=== PATIENT | female | born 1990 | race Caucasian/White ===

== ENCOUNTER 2017-01-05 10:02 | Emergency (ER) | payer OTHER ==
[~2017-01-05 10:02] MED LIST: ACET50TA PO; ANUS2.5C2 EXT; DOCU10ELUD PO; IBUP80TA PO; MOM30SS PO
[2017-01-05] MEDS ORDERED: ONDANSETRON 4 MG ORAL DISINTEGRATING TAB (S0181) As Ordered ONE (10:28)
--- NOTE | 2017-01-05 10:39 | EDDOCDS ---
Nurse's Notes [facility] Name: Aylin Grimaldo Age: 26 yrs Sex: Female : 1990 Arrival Date: 01/05/2017 Time: 10:02 Bed TR8 Private MD: Diagnosis: Influenza due to unidentified influenza virus Presentation: 01/05 10:10 Presenting complaint: Patient states: "fevers on and off, ear hurts". x2-3 days. Cough, ttb nasal congestion. Adult Sepsis Screening: The patient does not have new or worsening altered mentation. Patient's respiratory rate is less than 22. Systolic blood pressure is greater than 100. Patient has a qSOFA score of 0- Negative Sepsis Screen. Suicide/Homicide risk assessment- the patient denies having any suicidal and/or homicidal ideations and does not present with any other emotional, behavioral or mental health complaints. 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 Transition of care: patient was not received from another setting of care. 10:10 Acuity: MIGUEL Level 4 ttb 10:10 Method Of Arrival: Walkin/Carried/Asstd ttb Triage Assessment: 10:12 General: Appears in no apparent distress, well nourished, well groomed, Behavior is ttb appropriate for age, cooperative, pleasant. Pain: Location: head, left ear 9/10. HIV screening NA for this visit Offered previously. Neurological: Level of Consciousness is awake, alert. EENT: Reports nasal congestion nasal discharge. Respiratory: Airway is patent Respiratory effort is even, unlabored, Respiratory pattern is regular, symmetrical, Reports cough that is non-productive. GI: Denies nausea, vomiting. Derm: Skin is normal. Musculoskeletal: body aches. 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 Oral 2 gummy once daily (Last dose: 01/05/2017 07:00) 2. tizanidine oral oral Unknown - PMHx: Anxiety; Bipolar disorder; Depression; - PSHx: none; - Social history: Smoking status: Patient uses tobacco products, current every day smoker. Patient/guardian denies using alcohol, street drugs, No barriers to communication noted, The patient speaks fluent Ethiopian, Speaks appropriately for age. - Family history: Pertinent for flu last week. - : The pt / caregiver states he / she is not on anticoagulants. Home medication list is obtained from the patient. - Exposure Risk Screening:: None identified. Screenin:30 Screening information is obtained from the patient. Fall risk: No risks identified. ttb Assistance ADL's: requires no assistance with activities of daily living. Abuse/DV Screen: The patient / caregiver reports he/she is: not in a situation that causes fear, pain or injury. Nutritional screening: No deficits noted. Advance Directives: Currently, there is no health care proxy. home support is adequate. Assessment: 10:30 General: see triage assessment. Meds given per orders. . ttb Vital Signs: 10:08 BP 133 / 77 RA Sitting (auto/reg); Pulse 100; Resp 18; Temp 99.0(O); Pulse Ox 98% on jrd R/A; Weight 63.05 kg (R); Height 5 ft. 4 in. (162.56 cm) (R); Pain 9/10; 10:08 Body Mass Index 23.86 (63.05 kg, 162.56 cm) [facility] Vitals: 10:08 Log In Time: January 05, 2017 at 10:03. [facility] ED Course: 10:04 Patient visited by Rodrick Garcia PCA. jrd 10:04 Patient moved to Waiting jrd 10:08 Patient moved to Pre RCE jrd 10:09 Patient visited by Rodrick Garcia PCA. jrd 10:11 Triage Initiated ttb 10:13 Jam Miles PA-C is PHCP. cc10 10:13 Vasu Abbott MD is Attending Physician. cc10 10:14 Patient visited by Kylee Anthony RN. ttb 10:14 Patient moved to Triage 2 ttb 10:15 Patient visited by Jam Miles PA-C. cc10 10:15 Patient visited by Jam Miles PA-C. cc10 10:30 The patient / caregiver is instructed regarding the plan of care and ED course. ttb Accompanied by Significant Other, Patient has correct armband on for positive identification. 10:30 No IV's were initiated during this patient's visit. No procedures done that require ttb assistance. 10:31 Patient moved to TR8 ttb Administered Medications: 10:30 Drug: Ondansetron ODT 4 mg [ondansetron 4 mg disintegrating tablet (1 tabs)] Route: PO; ttb Order Results: There are currently no results for this order. Outcome: 10:21 Discharge ordered by Provider. cc10 10:30 Discharge Assessment: Patient awake, alert and oriented x 3. No cognitive and/or ttb functional deficits noted. Patient verbalized understanding of disposition instructions. Patient awake and alert. patient administered narcotics - no. The following High Risk Discharge criteria are identified: None. Discharged to home ambulatory, with significant other. Condition: good Condition: stable Condition: improved. Discharge instructions given to patient, significant other, Instructed on discharge instructions, follow up and referral plans. medication usage, diet, Demonstrated understanding of instructions, medications, Pt was receptive of discharge instructions/ teaching. Prescriptions given X 1. No special radiology studies were completed. Property :Personal belongings accompany Pt. 10:38 Patient left the ED. ttb Signatures: Kylee Anthony, RN RN ttb Jam Miles, PA-C PA-C cc10 Rodrick Garcia, [employer] OFFICER jrd MTDD
--- NOTE | 2017-01-05 10:39 | EDDOCDS ---
Physician Documentation [facility] Name: Aylin Grimaldo Age: 26 yrs Sex: Female : 1990 Arrival Date: 01/05/2017 Time: 10:02 Bed TR8 Private MD: Disposition: 01/05/17 10:21 Discharged to Home/Self Care. Impression: Influenza due to unidentified influenza virus. - Condition is Stable. - Discharge Instructions: Influenza Adult. - Prescriptions for ZOFRAN ODT 4 mg - dissolve 1 tablet by ORAL route 4 times per day As needed do not chew, do not swallow whole; 10 tablet. - Medication Reconciliation form. - Follow up: Private Physician; When: Call to arrange an appointment; Reason: Recheck today's complaints, Continuance of care. - Problem is an ongoing problem. - Symptoms are unchanged. Historical: - Allergies: Macrobid (Hives); PENICILLINS (Rash); Toradol (Rash); SULFA (SULFONAMIDES) (Hives); Tramadol HCl (Rash); - Home Meds: 1. Oral 2 gummy once daily (Last dose: 01/05/2017 07:00) 2. tizanidine oral oral Unknown - PMHx: Anxiety; Bipolar disorder; Depression; - PSHx: none; - Social history: Smoking status: Patient uses tobacco products, current every day smoker. Patient/guardian denies using alcohol, street drugs, No barriers to communication noted, The patient speaks fluent Iraqi, Speaks appropriately for age. - Family history: Pertinent for flu last week. - : The pt / caregiver states he / she is not on anticoagulants. Home medication list is obtained from the patient. - Exposure Risk Screening:: None identified. 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 4 in. (162.56 cm) (R); Pain 9/10; 10:08 Body Mass Index 23.86 (63.05 kg, 162.56 cm) jrd MDM: 10:20 Ondansetron ODT Oral Disintegrating Tablet 4 mg PO once ordered. cc10 10:34 Financial registration complete. lg Administered Medications: 10:30 Drug: Ondansetron ODT 4 mg [ondansetron 4 mg disintegrating tablet (1 tabs)] Route: PO; ttb Signatures: Kenya Bucio, Reg Reg lg Kylee Anthony, KOBE RN ttb Jam Miles PA-C PAGina cc10 MTDD
--- NOTE | 2017-01-07 11:39 | EDDOCDS ---
Physician Documentation [facility] Name: Aylin Grimaldo Age: 26 yrs Sex: Female : 1990 Arrival Date: 01/05/2017 Time: 10:02 Bed TR8 Private MD: Disposition: 01/05/17 10:21 Discharged to Home/Self Care. Impression: Influenza due to unidentified influenza virus. - Condition is Stable. - Discharge Instructions: Influenza Adult. - Prescriptions for ZOFRAN ODT 4 mg - dissolve 1 tablet by ORAL route 4 times per day As needed do not chew, do not swallow whole; 10 tablet. - Medication Reconciliation form. - Follow up: Private Physician; When: Call to arrange an appointment; Reason: Recheck today's complaints, Continuance of care. - Problem is an ongoing problem. - Symptoms are unchanged. Historical: - Allergies: Macrobid (Hives); PENICILLINS (Rash); Toradol (Rash); SULFA (SULFONAMIDES) (Hives); Tramadol HCl (Rash); - Home Meds: 1. Oral 2 gummy once daily (Last dose: 01/05/2017 07:00) 2. tizanidine oral oral Unknown - PMHx: Anxiety; Bipolar disorder; Depression; - PSHx: none; - Social history: Smoking status: Patient uses tobacco products, current every day smoker. Patient/guardian denies using alcohol, street drugs, No barriers to communication noted, The patient speaks fluent Kyrgyz, Speaks appropriately for age. - Family history: Pertinent for flu last week. - : The pt / caregiver states he / she is not on anticoagulants. Home medication list is obtained from the patient. - Exposure Risk Screening:: None identified. 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 4 in. (162.56 cm) (R); Pain 9/10; 10:08 Body Mass Index 23.86 (63.05 kg, 162.56 cm) jrd MDM: 10:20 Ondansetron ODT Oral Disintegrating Tablet 4 mg PO once ordered. cc10 10:34 Financial registration complete. lg 10:52 [facility] Payment Agreement was scanned into [employer] and attached to record. lg 13:00 T-Sheet-- Draft Copy was scanned into [employer] and attached to record. klr Administered Medications: 10:30 Drug: Ondansetron ODT 4 mg [ondansetron 4 mg disintegrating tablet (1 tabs)] Route: PO; ttb Signatures: Kenya Bucio, Jerry Reg lg Kylee Anthony, RN RN ttb Jam Miles PA-C PATraciC cc10 Angelica Ellis klr The chart was reviewed and I authenticate all verbal orders and agree with the evaluation and treatment provided.Attachments: 10:52 [facility] Payment Agreement lg 13:00 T-Sheet-- Draft Copy klr Chart Complete MTDD
--- NOTE | 2017-01-07 11:39 | EDDOCDS ---
Physician Documentation [facility] Name: Aylin Grimaldo Age: 26 yrs Sex: Female : 1990 Arrival Date: 01/05/2017 Time: 10:02 Bed TR8 Private MD: Disposition: 01/05/17 10:21 Discharged to Home/Self Care. Impression: Influenza due to unidentified influenza virus. - Condition is Stable. - Discharge Instructions: Influenza Adult. - Prescriptions for ZOFRAN ODT 4 mg - dissolve 1 tablet by ORAL route 4 times per day As needed do not chew, do not swallow whole; 10 tablet. - Medication Reconciliation form. - Follow up: Private Physician; When: Call to arrange an appointment; Reason: Recheck today's complaints, Continuance of care. - Problem is an ongoing problem. - Symptoms are unchanged. Historical: - Allergies: Macrobid (Hives); PENICILLINS (Rash); Toradol (Rash); SULFA (SULFONAMIDES) (Hives); Tramadol HCl (Rash); - Home Meds: 1. Oral 2 gummy once daily (Last dose: 01/05/2017 07:00) 2. tizanidine oral oral Unknown - PMHx: Anxiety; Bipolar disorder; Depression; - PSHx: none; - Social history: Smoking status: Patient uses tobacco products, current every day smoker. Patient/guardian denies using alcohol, street drugs, No barriers to communication noted, The patient speaks fluent Maltese, Speaks appropriately for age. - Family history: Pertinent for flu last week. - : The pt / caregiver states he / she is not on anticoagulants. Home medication list is obtained from the patient. - Exposure Risk Screening:: None identified. 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 4 in. (162.56 cm) (R); Pain 9/10; 10:08 Body Mass Index 23.86 (63.05 kg, 162.56 cm) jrd MDM: 10:20 Ondansetron ODT Oral Disintegrating Tablet 4 mg PO once ordered. cc10 10:34 Financial registration complete. lg 10:52 ON LICENSE OF [facility] Payment Agreement was scanned into [employer] and attached to record. lg 13:00 T-Sheet-- Draft Copy was scanned into [employer] and attached to record. klr Administered Medications: 10:30 Drug: Ondansetron ODT 4 mg [ondansetron 4 mg disintegrating tablet (1 tabs)] Route: PO; ttb Signatures: Kenya Bucio, Jerry Reg lg Kylee Anthony, RN RN ttb Jam Miles PA-C PATraciC cc10 Angelica Ellis klr The chart was reviewed and I authenticate all verbal orders and agree with the evaluation and treatment provided.Attachments: 10:52 ON LICENSE OF [facility] Payment Agreement lg 13:00 T-Sheet-- Draft Copy klr Chart Complete MTDD
--- NOTE | 2017-01-07 11:39 | EDDOCDS ---
Nurse's Notes [facility] Name: Aylin Grimaldo Age: 26 yrs Sex: Female : 1990 Arrival Date: 01/05/2017 Time: 10:02 Bed TR8 Private MD: Diagnosis: Influenza due to unidentified influenza virus Presentation: 01/05 10:10 Presenting complaint: Patient states: "fevers on and off, ear hurts". x2-3 days. Cough, ttb nasal congestion. Adult Sepsis Screening: The patient does not have new or worsening altered mentation. Patient's respiratory rate is less than 22. Systolic blood pressure is greater than 100. Patient has a qSOFA score of 0- Negative Sepsis Screen. Suicide/Homicide risk assessment- the patient denies having any suicidal and/or homicidal ideations and does not present with any other emotional, behavioral or mental health complaints. Status: Patient is not a intermodal customer service or dependent. Transition of care: patient was not received from another setting of care. 10:10 Acuity: MIGUEL Level 4 ttb 10:10 Method Of Arrival: Walkin/Carried/Asstd ttb Triage Assessment: 10:12 General: Appears in no apparent distress, well nourished, well groomed, Behavior is ttb appropriate for age, cooperative, pleasant. Pain: Location: head, left ear 9/10. HIV screening NA for this visit Offered previously. Neurological: Level of Consciousness is awake, alert. EENT: Reports nasal congestion nasal discharge. Respiratory: Airway is patent Respiratory effort is even, unlabored, Respiratory pattern is regular, symmetrical, Reports cough that is non-productive. GI: Denies nausea, vomiting. Derm: Skin is normal. Musculoskeletal: body aches. 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 Oral 2 gummy once daily (Last dose: 01/05/2017 07:00) 2. tizanidine oral oral Unknown - PMHx: Anxiety; Bipolar disorder; Depression; - PSHx: none; - Social history: Smoking status: Patient uses tobacco products, current every day smoker. Patient/guardian denies using alcohol, street drugs, No barriers to communication noted, The patient speaks fluent [place], Speaks appropriately for age. - Family history: Pertinent for flu last week. - : The pt / caregiver states he / she is not on anticoagulants. Home medication list is obtained from the patient. - Exposure Risk Screening:: None identified. Screenin:30 Screening information is obtained from the patient. Fall risk: No risks identified. ttb Assistance ADL's: requires no assistance with activities of daily living. Abuse/DV Screen: The patient / caregiver reports he/she is: not in a situation that causes fear, pain or injury. Nutritional screening: No deficits noted. Advance Directives: Currently, there is no health care proxy. home support is adequate. Assessment: 10:30 General: see triage assessment. Meds given per orders. . ttb Vital Signs: 10:08 BP 133 / 77 RA Sitting (auto/reg); Pulse 100; Resp 18; Temp 99.0(O); Pulse Ox 98% on jrd R/A; Weight 63.05 kg (R); Height 5 ft. 4 in. (162.56 cm) (R); Pain 9/10; 10:08 Body Mass Index 23.86 (63.05 kg, 162.56 cm) [facility] Vitals: 10:08 Log In Time: January 05, 2017 at 10:03. [facility] ED Course: 10:04 Patient visited by Rodrick Garcia PCA. jrd 10:04 Patient moved to Waiting jrd 10:08 Patient moved to Pre RCE jrd 10:09 Patient visited by Rodrick Garcia PCA. jrd 10:11 Triage Initiated ttb 10:13 Jam Miles PA-C is PHCP. cc10 10:13 Vasu Abbott MD is Attending Physician. cc10 10:14 Patient visited by Kylee Anthony RN. ttb 10:14 Patient moved to Triage 2 ttb 10:15 Patient visited by Jam Miles PA-C. cc10 10:15 Patient visited by Jam Miles PA-C. cc10 10:30 The patient / caregiver is instructed regarding the plan of care and ED course. ttb Accompanied by Significant Other, Patient has correct armband on for positive identification. 10:30 No IV's were initiated during this patient's visit. No procedures done that require ttb assistance. 10:31 Patient moved to TR8 ttb 10:52 [facility] Payment Agreement was scanned into [employer] and attached to record. 13:00 T-Sheet-- Draft Copy was scanned into [employer] and attached to record. klr Administered Medications: 10:30 Drug: Ondansetron ODT 4 mg [ondansetron 4 mg disintegrating tablet (1 tabs)] Route: PO; ttb Order Results: There are currently no results for this order. Outcome: 10:21 Discharge ordered by Provider. cc10 10:30 Discharge Assessment: Patient awake, alert and oriented x 3. No cognitive and/or ttb functional deficits noted. Patient verbalized understanding of disposition instructions. Patient awake and alert. patient administered narcotics - no. The following High Risk Discharge criteria are identified: None. Discharged to home ambulatory, with significant other. Condition: good Condition: stable Condition: improved. Discharge instructions given to patient, significant other, Instructed on discharge instructions, follow up and referral plans. medication usage, diet, Demonstrated understanding of instructions, medications, Pt was receptive of discharge instructions/ teaching. Prescriptions given X 1. No special radiology studies were completed. Property :Personal belongings accompany Pt. 10:38 Patient left the ED. ttb Signatures: Kenya Bucio, Kylee Christensen lg, RN RN ttb Jam Miles, PEDRO PAGina cc10 Rodrick Garcia PCA PCA jrd Redder, Kathie klr Chart Complete MTDD
== END 2017-01-05 10:38 | disposition home or self-care (01) ==
LOC: M ED 10:02
DX: J10.1 Influenza due to other identified influenza virus with other respiratory manifestations (principal); F41.9 Anxiety disorder, unspecified; F31.9 Bipolar disorder, unspecified; F32.9 Major depressive disorder, single episode, unspecified; Z72.0 Tobacco use; Z79.899 Other long term (current) drug therapy; Z88.1 Allergy status to other antibiotic agents; Z88.2 Allergy status to sulfonamides; Z88.5 Allergy status to narcotic agent; Z88.6 Allergy status to analgesic agent; Z88.0 Allergy status to penicillin

== ENCOUNTER 2017-02-10 04:05 | Emergency (ER) | payer OTHER ==
[~2017-02-10] VITALS: Ht 162.6 cm; Wt 61.2 kg
[2017-02-10 04:09] VITALS: BP 120/63
[2017-02-10] MEDS ORDERED: TOBRADEX OPHTH SUSP 2.5 ML OD ONE (04:30)
[2017-02-10] MEDS ORDERED: TOBRSUS39 OD (04:37)
== END 2017-02-10 05:05 | disposition home or self-care (01) ==
LOC: M ED 04:44
DX: H10.31 Unspecified acute conjunctivitis, right eye (principal); F31.9 Bipolar disorder, unspecified; F17.210 Nicotine dependence, cigarettes, uncomplicated; Z88.0 Allergy status to penicillin; Z88.2 Allergy status to sulfonamides; Z79.899 Other long term (current) drug therapy

== ENCOUNTER 2017-04-12 13:57 | Emergency (ER) | payer OTHER ==
[~2017-04-12] VITALS: Ht 162.6 cm; Wt 59.0 kg
[~2017-04-12 13:57] MED LIST changes: +TOBRSUS39 OD
[2017-04-12] MEDS ORDERED: TIZA4CAP3 PO (14:12)
[2017-04-12] MEDS ORDERED: ZYRT10TA2 PO (14:12)
[2017-04-12] MEDS ORDERED: ALBU17IN INH (14:12)
[2017-04-12] MEDS ORDERED: ALBUTEROL 90 MCG/ACT 8GM HFA INHALER INH ONE (15:30)
[2017-04-12] MEDS ORDERED: methylPREDNISolone INJ 125 MG/2 ML VIAL (J2930) IV ONE (15:45)
--- NOTE | 2017-04-12 16:27 | REP ---
clinical: Acute cough . Comparison: 10/25/2012 . Technique: PA and lateral. Findings: The mediastinum and cardiac silhouette are normal. The lung hay are clear and without acute consolidation, effusion, or pneumothorax. The skeletal structures are intact and normal. Impression: 1. No acute cardiopulmonary process. Signed by Norm Bowser MD 04/12/2017 04:19 P
[2017-04-12 16:35] LABS: BASO % 0.3 % (0.0-1.0); EOS # 0.3 K/mm3 (0.0-0.50); EOS % 2.3 % (0.0-3.0); LARGE UNSTAINED CELL # 0.1 K/mm3 (0.0-0.4); LARGE UNSTAINED CELL % 0.9 % (0.0-4.0); LYMPH # 2.3 K/mm3 (1.5-6.5); LYMPH % 17.2 % (24.0-44.0); MEAN CORPUSCULAR HEMOGLOBIN 30.4 pg (27.0-33.0); MEAN CORPUSCULAR HGB CONC 33.9 g/dl (32.0-36.5); MEAN CORPUSCULAR VOLUME 89.6 fl (80.0-96.0); MONO # 0.6 K/mm3 (0.0-0.8); MONO % 4.5 % (0.0-5.0); NEUTROPHILS # 9.3 K/mm3 (1.8-7.7); NEUTROPHILS % 74.9 % (36.0-66.0); PLATELET COUNT, AUTOMATED 260 k/mm3 (150-450); RED CELL DISTRIBUTION WIDTH 12.5 % (11.5-14.5); WHITE BLOOD COUNT 12.5 K/mm3 (4.0-10.0)
[2017-04-12 16:53] LABS: ANION GAP 8 MEQ/L (8-16); BLOOD UREA NITROGEN 12 MG/DL (7-18); CALCIUM LEVEL 9.2 MG/DL (8.5-10.1); CARBON DIOXIDE LEVEL 27 MEQ/L (21-32); CHLORIDE LEVEL 104 MEQ/L (98-107); CREATININE FOR GFR 0.65 MG/DL (0.55-1.02); GLOMERULAR FILTRATION RATE > 60.0 (>60); GLUCOSE, FASTING 80 MG/DL (70-105); POTASSIUM SERUM 3.9 MEQ/L (3.5-5.1); SODIUM LEVEL 139 MEQ/L (136-145)
[2017-04-12] MEDS ORDERED: PRED20TA PO (17:14)
[2017-04-12] MEDS ORDERED: DEXT30LI PO (17:20)
[2017-04-12 17:37] VITALS: BP 115/70
--- NOTE | 2017-04-13 14:23 | ECGEPIP ---
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
== END 2017-04-12 17:50 | disposition home or self-care (01) ==
LOC: M ED 15:01
DX: J45.901 Unspecified asthma with (acute) exacerbation (principal); R05 Cough; F17.200 Nicotine dependence, unspecified, uncomplicated; Z79.899 Other long term (current) drug therapy; Z88.0 Allergy status to penicillin; Z88.1 Allergy status to other antibiotic agents; Z88.2 Allergy status to sulfonamides; Z88.5 Allergy status to narcotic agent; Z88.8 Allergy status to other drugs, medicaments and biological substances; Z91.02 Food additives allergy status

== ENCOUNTER 2017-05-17 01:57 | Emergency (ER) | payer OTHER ==
[~2017-05-17] VITALS: Ht 162.6 cm; Wt 61.4 kg
[~2017-05-17 01:57] MED LIST changes: +ALBU17IN INH; +DEXT30LI PO; +PRED20TA PO; +TIZA4CAP3 PO; +ZYRT10TA2 PO
[2017-05-17] MEDS ORDERED: MORPHINE 10 MG/ML 1ML VIAL IM ONE (04:15)
[2017-05-17] MEDS ORDERED: PERC5TAB12 PO (05:29)
[2017-05-17] MEDS ORDERED: OXYCODONE/APAP 5MG/325MG(BULK FOR ED) 1 TABLET PO ONE (05:30)
[2017-05-17 05:49] VITALS: BP 126/71
--- NOTE | 2017-05-17 06:13 | REP ---
Clinical: Trauma. Technique: AP angled and lateral views of the sacrum and coccyx. Findings: Bilateral sacroiliac joints are intact, symmetric and normal for age. The sacrum is intact. Lateral view demonstrates fracture / dislocation of the distal coccygeal segment with overlying soft tissue swelling. Impression: Acute versus chronic distal coccyx fracture / dislocation with overlying soft tissue swelling. Signed by Norm Bowser MD 05/17/2017 06:05 A
== END 2017-05-17 05:51 | disposition home or self-care (01) ==
LOC: M ED 03:02
DX: S30.0XXA Contusion of lower back and pelvis, initial encounter (principal); F17.210 Nicotine dependence, cigarettes, uncomplicated; X58.XXXA Exposure to other specified factors, initial encounter; Z79.899 Other long term (current) drug therapy; Z88.0 Allergy status to penicillin; Z88.2 Allergy status to sulfonamides; Z88.8 Allergy status to other drugs, medicaments and biological substances; Y92.9 Unspecified place or not applicable; Y93.9 Activity, unspecified; Y99.9 Unspecified external cause status

== ENCOUNTER 2017-06-20 22:54 | Emergency (ER) | payer OTHER ==
[~2017-06-20] VITALS: Ht 162.6 cm; Wt 67.8 kg
[~2017-06-20 22:54] MED LIST changes: +PERC5TAB12 PO
[2017-06-21] MEDS ORDERED: CLEO300C2 PO (00:28)
[2017-06-21] MEDS ORDERED: TYLE500T78 PO (00:28)
[2017-06-21] MEDS ORDERED: NORCO 5/325MG TABLET (BULK FOR ED) PO ONE (00:30)
[2017-06-21] MEDS ORDERED: CLINDAMYCIN 150 MG CAP PO ONE (00:30)
[2017-06-21 00:40] VITALS: BP 112/77
== END 2017-06-21 00:56 | disposition home or self-care (01) ==
LOC: M ED 22:54
DX: K02.9 Dental caries, unspecified (principal); J45.909 Unspecified asthma, uncomplicated; F41.9 Anxiety disorder, unspecified; F31.9 Bipolar disorder, unspecified; Z86.14 Personal history of Methicillin resistant Staphylococcus aureus infection; Z79.899 Other long term (current) drug therapy; Z99.0 Dependence on aspirator; Z88.2 Allergy status to sulfonamides; Z88.5 Allergy status to narcotic agent; Z88.8 Allergy status to other drugs, medicaments and biological substances

== ENCOUNTER 2017-07-17 13:39 | Emergency (ER) | payer OTHER ==
[~2017-07-17] VITALS: Ht 162.6 cm; Wt 65.9 kg
[~2017-07-17 13:39] MED LIST changes: +CLEO300C2 PO; +TYLE500T78 PO
[2017-07-17] MEDS ORDERED: ADVI200T PO (13:58)
[2017-07-17] MEDS ORDERED: NS 1,000 ML IV ONE (15:45)
[2017-07-17] MEDS ORDERED: ACETAMINOPHEN 325 MG TAB PO ONE (15:45)
[2017-07-17] MEDS ORDERED: CLINDAMYCIN 900 MG in APPROPRIATE DILUENT 1 EA IV ONE (15:45)
[2017-07-17 16:12] LABS: BASO % 0.3 % (0.0-1.0); EOS # 0.2 K/mm3 (0.0-0.50); EOS % 1.2 % (0.0-3.0); LARGE UNSTAINED CELL # 0.1 K/mm3 (0.0-0.4); LYMPH % 6.8 % (24.0-44.0); MEAN CORPUSCULAR HEMOGLOBIN 30.9 pg (27.0-33.0); MEAN CORPUSCULAR HGB CONC 34.4 g/dl (32.0-36.5); MEAN CORPUSCULAR VOLUME 89.8 fl (80.0-96.0); MONO # 0.9 K/mm3 (0.0-0.8); MONO % 7.4 % (0.0-5.0); NEUTROPHILS # 10.5 K/mm3 (1.8-7.7); NEUTROPHILS % 83.3 % (36.0-66.0); PLATELET COUNT, AUTOMATED 227 k/mm3 (150-450); RED CELL DISTRIBUTION WIDTH 12.6 % (11.5-14.5); WHITE BLOOD COUNT 12.6 K/mm3 (4.0-10.0)
[2017-07-17 16:26] LABS: CONTROL LINE HCG INT CTR LINE PRESENT
[2017-07-17 16:34] LABS: ALBUMIN 3.5 GM/DL (3.2-5.2); ALKALINE PHOSPHATASE 76 U/L (45-117); ALT/SGPT 14 U/L (12-78); ANION GAP 7 MEQ/L (8-16); AST/SGOT 12 U/L (15-37); BILIRUBIN,DIRECT < 0.1 MG/DL (0.0-0.2); BILIRUBIN,TOTAL 0.4 MG/DL (0.2-1.0); BLOOD UREA NITROGEN 10 MG/DL (7-18); CALCIUM LEVEL 8.7 MG/DL (8.5-10.1); CARBON DIOXIDE LEVEL 24 MEQ/L (21-32); CHLORIDE LEVEL 108 MEQ/L (98-107); CREATININE FOR GFR 0.55 MG/DL (0.55-1.02); GLOMERULAR FILTRATION RATE > 60.0 (>60); GLUCOSE, FASTING 87 MG/DL (70-105); POTASSIUM SERUM 3.5 MEQ/L (3.5-5.1); SODIUM LEVEL 139 MEQ/L (136-145)
[2017-07-17] MEDS ORDERED: CLEO300C2 PO (18:01)
[2017-07-17 18:11] VITALS: BP 89/53
== END 2017-07-17 18:12 | disposition home or self-care (01) ==
LOC: M ED 13:39
DX: R50.9 Fever, unspecified (principal); L73.9 Follicular disorder, unspecified; J02.9 Acute pharyngitis, unspecified; D32.9 Benign neoplasm of meninges, unspecified; F17.200 Nicotine dependence, unspecified, uncomplicated; Z79.899 Other long term (current) drug therapy; Z88.8 Allergy status to other drugs, medicaments and biological substances; Z88.0 Allergy status to penicillin; Z88.2 Allergy status to sulfonamides; Z88.5 Allergy status to narcotic agent

== ENCOUNTER 2017-07-20 22:09 | Emergency (ER) | payer OTHER ==
[~2017-07-20] VITALS: Ht 162.6 cm; Wt 64.7 kg
[~2017-07-20 22:09] MED LIST changes: +ADVI200T PO
[2017-07-20 22:10] VITALS: BP 107/65
[2017-07-20] MEDS ORDERED: LIDOCAINE 2% MDV 20 ML VIAL SC ONE (23:00)
[2017-07-20] MEDS ORDERED: NORCO 5/325MG TABLET (BULK FOR ED) PO ONE (23:30)
== END 2017-07-20 23:44 | disposition home or self-care (01) ==
LOC: M ED 22:09
DX: L02.214 Cutaneous abscess of groin (principal); Z86.14 Personal history of Methicillin resistant Staphylococcus aureus infection; F17.200 Nicotine dependence, unspecified, uncomplicated; J45.909 Unspecified asthma, uncomplicated; M54.9 Dorsalgia, unspecified; F41.9 Anxiety disorder, unspecified; F32.9 Major depressive disorder, single episode, unspecified; Z79.899 Other long term (current) drug therapy; Z88.8 Allergy status to other drugs, medicaments and biological substances; Z88.0 Allergy status to penicillin; Z88.2 Allergy status to sulfonamides; Z88.5 Allergy status to narcotic agent; Z88.6 Allergy status to analgesic agent

== ENCOUNTER 2018-04-08 17:45 | Emergency (ER) | payer OTHER ==
[2018-04-08] MEDS: CETACAINE SPRAY 5GM TOP (18:30)
[2018-04-08] MEDS: LIDOCAINE 2% W/EPIN INJ 20ML **PRES FREE INJ (18:30)
[2018-04-08] MEDS: BUPIVACAINE HCL 0.5% 10 ML VIAL SC (18:30)
== END 2018-04-08 19:28 | disposition home or self-care (01) ==
LOC: M ED 17:45
DX: S02.5XXA Fracture of tooth (traumatic), initial encounter for closed fracture (principal); K04.7 Periapical abscess without sinus; K08.89 Other specified disorders of teeth and supporting structures; X58.XXXA Exposure to other specified factors, initial encounter; Y92.9 Unspecified place or not applicable; Y93.9 Activity, unspecified; Y99.9 Unspecified external cause status; Z79.899 Other long term (current) drug therapy; Z88.8 Allergy status to other drugs, medicaments and biological substances; Z88.0 Allergy status to penicillin; Z88.2 Allergy status to sulfonamides; Z88.5 Allergy status to narcotic agent
CPT/HCPCS: 64400

== ENCOUNTER 2018-10-16 10:33 | Day surgery (SDC) | payer OTHER ==
[2018-10-16 11:22] LABS: CONTROL LINE UCG INT CTR LINE PRESENT; URINE PREG TEST NEGATIVE (NEGATIVE)
[2018-10-16] MEDS: LR 1,000 ML IV ×2 (11:30→15:28)
[2018-10-16] MEDS ORDERED: LIDOCAINE 2% W/ EPINEPHRINE 1.7 ML DENTAL INJ As Ordered (13:29)
[2018-10-16] MEDS: dexameTHASONE 4 MG/ML 1ML VIAL (J1100) IV (13:58)
[2018-10-16] MEDS: CLINDAMYCIN 900 MG in APPROPRIATE DILUENT 1 EA IV (14:00)
[2018-10-16] MEDS ORDERED: PROPOFOL 200 MG/20 ML VIAL As Ordered (14:15)
[2018-10-16] MEDS ORDERED: ROCURONIUM BROMIDE 50 MG/5 ML VIAL As Ordered (14:15)
[2018-10-16] MEDS ORDERED: ePHEDrine SULFATE 25 MG/5 ML(5MG/ML) SYRINGE As Ordered (14:15)
[2018-10-16] MEDS ORDERED: fentaNYL 250 MCG/5 ML INJECTION (J3010) As Ordered (14:15)
[2018-10-16] MEDS ORDERED: MIDAZOLAM INJ 2 MG/2 ML VIAL (J2250) As Ordered (14:15)
[2018-10-16] MEDS ORDERED: LIDOCAINE 2% INJ 100 MG/5 ML SDV (FOR ANES.) As Ordered (14:15)
[2018-10-16] MEDS ORDERED: ONDANSETRON 4MG/2ML VIAL (J2405) As Ordered (14:15)
[2018-10-16] MEDS ORDERED: GLYCOPYRROLATE INJ 0.2 MG/ML 2 ML VIAL As Ordered ×2 (14:27)
[2018-10-16] MEDS ORDERED: NEOSTIGMINE 10 MG/10 ML VIAL (J2710) As Ordered (14:27)
[2018-10-16] MEDS: CHLORHEXIDINE ORAL RINSE 0.12%/15ML 120ML BOTTLE As Ordered (14:30)
[2018-10-16] MEDS ORDERED: MORPHINE 10 MG/ML 1ML VIAL (J2270) IV (15:45)
[2018-10-16] MEDS: PERCOCET 5MG/325MG TAB PO ×2 (16:20→16:50)
[2018-10-16] MEDS: ONDANSETRON 4MG/2ML VIAL (J2405) IV (16:20)
[2018-10-16] MEDS: fentaNYL 100 MCG/2 ML INJECTION (J3010) IV ×4 (16:20→16:35)
[2018-10-16] MEDS ORDERED: PERCOCET 5MG/325MG TAB As Ordered (16:50)
== END 2018-10-16 19:05 | disposition home or self-care (01) ==
LOC: M SDC 10:33
DX: K02.9 Dental caries, unspecified (principal); R01.1 Cardiac murmur, unspecified; R29.898 Other symptoms and signs involving the musculoskeletal system; F41.0 Panic disorder [episodic paroxysmal anxiety]; F31.9 Bipolar disorder, unspecified; J45.909 Unspecified asthma, uncomplicated; Z88.0 Allergy status to penicillin; Z88.2 Allergy status to sulfonamides; Z88.5 Allergy status to narcotic agent; Z88.8 Allergy status to other drugs, medicaments and biological substances; Z79.899 Other long term (current) drug therapy; Z72.0 Tobacco use
CPT/HCPCS: D9223

== ENCOUNTER → 2019-06-27 | Outpatient (CLI) | payer OTHER ==
[~2019-06-27] MED LIST changes: -ACET50TA PO; +ADDE20CA3 PO; -DOCU10ELUD PO; +DOCU5LIQ PO; +FLUO40CA PO; +GABA-845 PO; +MAPA500T17 PO; +NEUR100C PO; +TIZA4CAP PO; -TIZA4CAP3 PO; +TOPI50TA9 PO; +ZOFR4TAB16 PO; +ZYRT10CA5 PO; -ZYRT10TA2 PO
[2019-06-27 12:17] LABS: BASO % 0.4 % (0.0-1.0); EOS # 0.1 10^3/uL (0.0-0.50); EOS % 1.6 % (0.0-3.0); HEMATOCRIT 41.1 % (36.0-47.0); HEMOGLOBIN 13.9 g/dl (12.0-15.5); LYMPH # 2.4 10^3/uL (1.5-6.5); LYMPH % 29.2 % (24.0-44.0); MEAN CORPUSCULAR HEMOGLOBIN 29.9 pg (27.0-33.0); MEAN CORPUSCULAR HGB CONC 33.8 g/dl (32.0-36.5); MEAN CORPUSCULAR VOLUME 88.4 fl (80.0-96.0); MONO # 0.7 10^3/uL (0.0-0.8); MONO % 8.6 % (0.0-5.0); PLATELET COUNT, AUTOMATED 292 10^3/uL (150-450); RED BLOOD COUNT 4.65 10^6/uL (4.00-5.40); WHITE BLOOD COUNT 8.3 10^3/uL (4.0-10.0)
[2019-06-27 13:10] LABS: HEPATITIS C VIRUS ABY INDEX 0.1 INDEX (<0.8); RUBELLA IgG QUALITATIVE IMMUNE (IMMUNE)
[2019-06-27 16:39] LABS: CHLAMYDIA DNA AMPLIFICATION NEGATIVE (NEGATIVE)
[2019-06-28 06:32] LABS: GC DNA AMPLIFICATION NEGATIVE (NEGATIVE)
[2019-06-28 06:33] LABS: HIV 1&2 SCREEN CENTAUR NEGATIVE (NEGATIVE)
== END ==
LOC: M LAB 10:55
PROVIDERS: ATTEND Advanced Practice Midwife
DX: Z34.80 Encounter for supervision of other normal pregnancy, unspecified trimester (principal); Z3A.09 9 weeks gestation of pregnancy

== ENCOUNTER 2019-07-03 19:23 | Emergency (ER) | payer OTHER ==
[~2019-07-03] VITALS: Ht 162.6 cm; Wt 70.1 kg
[~2019-07-03 19:23] MED LIST changes: -ZOFR4TAB16 PO
[2019-07-03 20:53] LABS: BASO % 0.4 % (0.0-1.0); EOS # 0.2 10^3/uL (0.0-0.50); EOS % 1.4 % (0.0-3.0); HEMOGLOBIN 13.7 g/dl (12.0-15.5); LYMPH # 3.4 10^3/uL (1.5-6.5); LYMPH % 30.6 % (24.0-44.0); MEAN CORPUSCULAR HEMOGLOBIN 30.5 pg (27.0-33.0); MEAN CORPUSCULAR HGB CONC 34.3 g/dl (32.0-36.5); MEAN CORPUSCULAR VOLUME 89.1 fl (80.0-96.0); MONO # 0.8 10^3/uL (0.0-0.8); NEUTROPHILS # 6.7 10^3/uL (1.8-7.7); NEUTROPHILS % 60.3 % (36.0-66.0); PLATELET COUNT, AUTOMATED 265 10^3/uL (150-450); RED BLOOD COUNT 4.49 10^6/uL (4.00-5.40); WHITE BLOOD COUNT 11.1 10^3/uL (4.0-10.0)
[2019-07-03] MEDS ORDERED: NS 1,000 ML IV ONE ×2 (21:30→22:45)
[2019-07-03] MEDS ORDERED: ONDANSETRON 4MG/2ML VIAL (J2405) IV ONE (21:30)
[2019-07-03 21:39] LABS: BLOOD UREA NITROGEN 7 MG/DL (7-18); CALCIUM LEVEL 9.4 MG/DL (8.5-10.1); CARBON DIOXIDE LEVEL 26 MEQ/L (21-32); CHLORIDE LEVEL 104 MEQ/L (98-107); CREATININE FOR GFR 0.48 MG/DL (0.55-1.30); GLOMERULAR FILTRATION RATE > 60.0 (>60); GLUCOSE, FASTING 75 MG/DL (70-100); HCG, SERUM QUANTITATIVE 28760 MIU/ML; POTASSIUM SERUM 3.6 MEQ/L (3.5-5.1); SODIUM LEVEL 137 MEQ/L (136-145)
[2019-07-03] MEDS ORDERED: ZOFR4TAB16 PO (23:07)
[2019-07-03 23:15] VITALS: BP 104/70
== END 2019-07-04 00:19 | disposition home or self-care (01) ==
LOC: M ED 19:23
DX: E86.0 Dehydration (principal); Z3A.11 11 weeks gestation of pregnancy; Z88.0 Allergy status to penicillin; Z88.1 Allergy status to other antibiotic agents; Z88.2 Allergy status to sulfonamides; Z88.5 Allergy status to narcotic agent; Z88.8 Allergy status to other drugs, medicaments and biological substances
CPT/HCPCS: 80048; 81001; 84702; 85025; 87086; 96361; 96374; 99284; J2405

== ENCOUNTER → 2019-07-03 | Outpatient (CLI) | payer OTHER ==
[2019-07-03 13:46] LABS: FREE T4 1.04 NG/DL (0.76-1.46); THYROID STIMULATING HORMONE 0.351 uIU/ML (0.358-3.740)
== END ==
LOC: M SMT 09:37
PROVIDERS: ATTEND Advanced Practice Midwife
DX: R11.2 Nausea with vomiting, unspecified (principal)

== ENCOUNTER 2019-07-30 17:32 | Emergency (ER) | payer OTHER ==
[~2019-07-30] VITALS: Ht 162.6 cm; Wt 73.5 kg
[~2019-07-30 17:32] MED LIST changes: +ZOFR4TAB16 PO
[2019-07-30] MEDS ORDERED: RISP1TAB3 (18:51)
[2019-07-30] MEDS ORDERED: GABA-845 (18:51)
[2019-07-30] MEDS ORDERED: TOPI50TA9 (18:51)
[2019-07-30] MEDS ORDERED: GABA-1171 (18:51)
[2019-07-30] MEDS ORDERED: NS 1,000 ML IV ONE (20:00)
[2019-07-30] MEDS ORDERED: FIORICET TAB PO ONE (20:00)
[2019-07-30 20:43] LABS: HEMATOCRIT 35.6 % (36.0-47.0); HEMOGLOBIN 12.1 g/dl (12.0-15.5); MEAN CORPUSCULAR HEMOGLOBIN 30.3 pg (27.0-33.0); MEAN CORPUSCULAR VOLUME 89.2 fl (80.0-96.0); PLATELET COUNT, AUTOMATED 315 10^3/uL (150-450); RED BLOOD COUNT 3.99 10^6/uL (4.00-5.40); WHITE BLOOD COUNT 12.7 10^3/uL (4.0-10.0)
[2019-07-30 21:04] LABS: BLOOD UREA NITROGEN 8 MG/DL (7-18); CALCIUM LEVEL 9.6 MG/DL (8.5-10.1); CARBON DIOXIDE LEVEL 24 MEQ/L (21-32); CHLORIDE LEVEL 106 MEQ/L (98-107); CREATININE FOR GFR 0.38 MG/DL (0.55-1.30); GLOMERULAR FILTRATION RATE > 60.0 (>60); GLUCOSE, FASTING 75 MG/DL (70-100); POTASSIUM SERUM 3.7 MEQ/L (3.5-5.1); SODIUM LEVEL 137 MEQ/L (136-145)
[2019-07-30 21:41] VITALS: BP 100/57
--- NOTE | 2019-07-30 22:39 | REPVR ---
EXAM: US Abdomen Complete EXAM DATE/TIME: 07/30/2019 9:26 PM CLINICAL HISTORY: 29 years old, female; Injury or trauma; Fall; Initial encounter; Blunt; Luq; Injury date: 07/30/19; ; Additional info: Pain over spleen fell TECHNIQUE: Imaging protocol: Real-time ultrasound of the abdomen with image documentation. COMPARISON: US OBS DELON GEST 07/30/2019 8:51 PM FINDINGS: Liver: Unremarkable. Gallbladder: No gallstones. No gallbladder wall thickening or pericholecystic fluid. 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 Common bile duct: No stones. No ductal dilatation. Pancreas: Unremarkable as visualized. Right kidney: No mass. No definite stones. Mild prominence of the right renal collecting system, likely physiologic. Left kidney: No mass. No definite stones. No hydronephrosis. Spleen: Unremarkable. Aorta: Unremarkable as visualized. No aneurysm. Inferior vena cava: Unremarkable as visualized. IMPRESSION: Mild prominence of the right renal collecting system, likely physiologic. Electronically signed by: Rocco Campos On 07/30/2019 22:38:58 PM
--- NOTE | 2019-07-30 23:01 | REPVR ---
EXAM: US After First Trimester, Transabdominal EXAM DATE/TIME: 07/30/2019 9:26 PM CLINICAL HISTORY: 29 years old, female; Injury or trauma; Fall; Initial encounter; Blunt trauma; Left upper quadrant; Injury date: 07/30/19; ; Additional info: Fell on stomach, TECHNIQUE: Imaging protocol: Real-time transabdominal obstetrical ultrasound of the maternal pelvis and a second or third trimester with image documentation. COMPARISON: OBS COMPLETE US 03/26/2013 11:12 AM FINDINGS: There is a vincent fetus in transverse presentation. The heart rate was measured at 149 beats per minute. The biparietal diameter is 3.2 cm, corresponding to an estimated gestational age of 16 weeks, 1 day. The head circumference is 11.2 cm, corresponding to an estimated gestational age of 15 weeks, 3 days. The abdominal circumference is 9.2 cm, corresponding to an estimated gestational age of 15 weeks, 2 days. The femur length is 1.9 cm, corresponding to an estimated gestational age of 15 weeks, 5 days. The average ultrasound age was measured at 15 weeks, 4 days. The estimated gestational age based on the last menstrual period (04/14/2019) is 15 weeks, 2 days. The estimated weight is 127 g, corresponding to the 52nd percentile. The sonographic estimated date of delivery is 01/17/2020. A detailed anatomic survey was not performed at this time. No abnormality is identified on this limited examination. The placenta is anterior in location. There is an adequate amount of amniotic fluid. The cervix is closed and measures approximately 4.2 cm in length. IMPRESSION: Single viable intrauterine gestation in transverse presentation with an average ultrasound age of 15 weeks, 4 days. No abnormality identified on this limited examination. Recommend continued clinical and ultrasound surveillance, as clinically indicated. Electronically signed by: Rocco Campos On 07/30/2019 23:01:09 PM
[2019-10-19] MEDS ORDERED: PRENTAB9 PO (11:45)
[2019-10-19] MEDS ORDERED: CLEO300C2 PO (13:41)
== END 2019-07-30 23:57 | disposition home or self-care (01) ==
LOC: M ED 17:32
DX: O99.352 Diseases of the nervous system complicating pregnancy, second trimester (principal); G43.909 Migraine, unspecified, not intractable, without status migrainosus; Z3A.15 15 weeks gestation of pregnancy; O99.342 Other mental disorders complicating pregnancy, second trimester; O99.512 Diseases of the respiratory system complicating pregnancy, second trimester; J45.909 Unspecified asthma, uncomplicated; F33.9 Major depressive disorder, recurrent, unspecified; F41.9 Anxiety disorder, unspecified; Z88.0 Allergy status to penicillin; Z88.1 Allergy status to other antibiotic agents; Z88.2 Allergy status to sulfonamides; Z88.5 Allergy status to narcotic agent; Z88.8 Allergy status to other drugs, medicaments and biological substances; Z79.899 Other long term (current) drug therapy; O99.332 Smoking (tobacco) complicating pregnancy, second trimester; F17.210 Nicotine dependence, cigarettes, uncomplicated

== ENCOUNTER → 2019-08-15 | Outpatient (CLI) | payer OTHER ==
[~2019-08-15] MED LIST changes: +GABA-1171; +GABA-845; +PRENTAB9 PO; +RISP1TAB3; +TOPI50TA9; +VENTAER INH
== END ==
LOC: M SMT 10:40
PROVIDERS: ATTEND Advanced Practice Midwife
DX: Z36.89 Encounter for other specified antenatal screening (principal)

== ENCOUNTER 2019-08-21 19:16 | Emergency (ER) | payer OTHER ==
[~2019-08-21] VITALS: Ht 162.6 cm; Wt 75.9 kg
[~2019-08-21 19:16] MED LIST changes: -PRENTAB9 PO; -VENTAER INH
[2019-08-21] MEDS ORDERED: IPRATROPIUM 0.5MG/ALBUTEROL 2.5MG INH SOL UD 3ML (DUONEB)(J7620) NEB ONE ×2 (20:15→22:30)
[2019-08-21 20:23] LABS: BASO % 0.2 % (0.0-1.0); EOS # 0.2 10^3/uL (0.0-0.5); EOS % 1.4 % (0.0-3.0); HEMOGLOBIN 11.4 g/dl (12.0-15.5); LYMPH # 2.9 10^3/uL (1.5-5.0); LYMPH % 22.1 % (24.0-44.0); MEAN CORPUSCULAR HEMOGLOBIN 30.6 pg (27.0-33.0); MEAN CORPUSCULAR HGB CONC 33.5 g/dl (32.0-36.5); MEAN CORPUSCULAR VOLUME 91.2 fl (80.0-96.0); MONO # 0.9 10^3/uL (0.0-0.8); MONO % 7.2 % (0.0-5.0); NEUTROPHILS % 68.7 % (36.0-66.0); PLATELET COUNT, AUTOMATED 288 10^3/uL (150-450); RED BLOOD COUNT 3.73 10^6/uL (4.00-5.40); WHITE BLOOD COUNT 13.1 10^3/uL (4.0-10.0)
[2019-08-21 20:55] LABS: BLOOD UREA NITROGEN 8 MG/DL (7-18); CALCIUM LEVEL 8.7 MG/DL (8.5-10.1); CARBON DIOXIDE LEVEL 25 MEQ/L (21-32); CHLORIDE LEVEL 108 MEQ/L (98-107); CK-MB VALUE MASS < 1.0 NG/ML (<3.6); CPK CREATINE PHOSPHOKINASE 37 U/L (26-192); CREATININE FOR GFR 0.52 MG/DL (0.55-1.30); GLOMERULAR FILTRATION RATE > 60.0 (>60); GLUCOSE, FASTING 83 MG/DL (70-100); POTASSIUM SERUM 3.5 MEQ/L (3.5-5.1); SODIUM LEVEL 141 MEQ/L (136-145); TROPONIN I < 0.02 NG/ML (< 0.10)
--- NOTE | 2019-08-21 21:54 | REPVR ---
PROCEDURE INFORMATION: Exam: US Duplex Lower Extremity Veins Exam date and time: 08/21/2019 9:05 PM Clinical history: 29 years old, female; Pain; Other: Chest; Additional info: Preg chest pain eval for dvt TECHNIQUE: Imaging protocol: Real-time duplex ultrasound of the Lower Extremities with 2-D woodson scale, color Doppler flow and spectral waveform analysis with image documentation. Complete exam focused on the bilateral lower extremity veins. COMPARISON: No relevant prior studies available. FINDINGS: Right deep veins: Unremarkable. The common femoral, femoral, proximal profunda femoral and popliteal veins are patent without thrombus. Normal Doppler waveforms. Normal compressibility and/or augmentation response. Right superficial veins: Saphenofemoral junction is patent without thrombus. Left deep veins: Unremarkable. The common femoral, femoral, proximal profunda femoral and popliteal veins are patent without thrombus. Normal Doppler waveforms. Normal compressibility and/or augmentation response. Left superficial veins: Saphenofemoral junction is patent without thrombus. Soft tissues: Unremarkable. IMPRESSION: No sonographic evidence of deep vein thrombosis. Electronically signed by: Rocco Campos On 08/21/2019 21:54:18 PM
[2019-08-21] MEDS ORDERED: predniSONE 20 MG TAB PO ONE (22:45)
[2019-08-21 23:52] VITALS: O2SAT 100
[2019-08-22] MEDS ORDERED: ALBUTEROL 90 MCG/ACT 8GM HFA INHALER INH ONE
[2019-08-22] MEDS ORDERED: VENTAER INH (00:32)
[2019-08-22] MEDS ORDERED: PRED20TA PO (00:32)
[2019-08-22 00:34] VITALS: BP 118/59
--- NOTE | 2019-08-22 07:38 | ECGEPIP ---
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
== END 2019-08-22 00:40 | disposition home or self-care (01) ==
LOC: M ED 19:16
DX: J45.901 Unspecified asthma with (acute) exacerbation (principal); J06.9 Acute upper respiratory infection, unspecified; F41.9 Anxiety disorder, unspecified; F31.9 Bipolar disorder, unspecified; K21.9 Gastro-esophageal reflux disease without esophagitis; M54.9 Dorsalgia, unspecified; F17.200 Nicotine dependence, unspecified, uncomplicated; Z79.899 Other long term (current) drug therapy; Z88.0 Allergy status to penicillin; Z88.2 Allergy status to sulfonamides; Z88.5 Allergy status to narcotic agent; Z88.8 Allergy status to other drugs, medicaments and biological substances

== ENCOUNTER → 2019-08-22 | Outpatient (CLI) | payer OTHER ==
[~2019-08-22] MED LIST changes: +VENTAER INH
--- NOTE | 2019-08-22 15:25 | REP ---
Obstetric sonography: History: Supervision of for anatomy. Findings: Scanning through the gravid uterus demonstrates a viable single intrauterine gestation in a cephalic lie. motion is observed and heart rate is recorded at 140 beats per minute. An anterior grade 0 placenta is seen without evidence of previa or abruption. Amniotic fluid is subjectively normal. Closed cervical length is 3.9 cm. No extrauterine abnormalities observed. No anomaly is seen. nose and lips are seen but facial profile is less than optimally visualized due to position. Similarly, four-chamber heart and right ventricular outflow tract views are less than optimally achieved. The following additional anatomic structures are identified and felt to be unremarkable: cranium, choroid plexus, cavum, cerebellum and posterior fossa, left ventricular outflow tract view, diaphragm, left-sided stomach, abdominal wall cord insertion, three-vessel cord, kidneys and bladder, spine, upper and lower extremities. Biometry chart: BPD 4.5 cm = 19 weeks 4 days HC 15.9 cm = 18 weeks 5 days AC 12.4 cm = 18 weeks 0 days FL 2.5 cm = 17 weeks 3 days HL 2.5 cm = 18 weeks 0 days HC/AC ratio 1.28 (1.07-1.26. Cephalic index normal 0.82. Estimated weight 214 grams, 0 pounds 7 ounces, 21st percentile for 18 weeks 4 days. Impression: Viable single intrauterine gestation at 18 weeks 2 days by today's composite sonographic criteria. Expected gestational age estimate based on prior sonography is 18 weeks 6 days. MAE by prior sonography January 17, 2020. anatomic survey is less than complete regarding facial profile, four-chamber heart, and right ventricular cardiac outflow tract views. Electronically Signed by Colin Miller MD 08/22/2019 04:05 P
== END ==
LOC: M RAD 09:57
PROVIDERS: ATTEND Advanced Practice Midwife
DX: Z34.82 Encounter for supervision of other normal pregnancy, second trimester (principal); Z36.89 Encounter for other specified antenatal screening

== ENCOUNTER → 2019-09-19 | Outpatient (CLI) | payer OTHER ==
--- NOTE | 2019-09-19 12:22 | REP ---
OB ULTRASOUND: Real-time sonographic evaluation of the gravid uterus is performed. There is a single living intrauterine gestation. Estimated gestational age 22 weeks 4 days, EDC 01/19/2020. Today's measurements indicate appropriate growth. BPD 56 mm = 23 weeks 1 days, 64th percentile HC 200 mm = 22 weeks 1 day, 36th percentile AC 171 mm = 22 weeks 0 days, 38th percentile Femur length 39 mm = 22 weeks 5 days, 52nd percentile HC/AC ratio 1.17 within normal range. Estimated weight 496 grams, 37th percentile. Cervix is closed and measures 4.9 cm in length. heart rate 147 beats per minute. SEEN/GROSSLY UNREMARKABLE Lateral ventricles Yes Posterior fossa Yes Upper lip Yes Four-chamber heart Yes LVOT Yes RVOT Yes Stomach Yes Cord insertion Yes Three vessel cord Yes Kidneys Yes Bladder Yes Spine Yes position: Variable. Placenta: Fundal and to the right, grade 0 with no previa or abruption. Amniotic fluid: Within normal limits. Electronically Signed by Joon Thibodeaux MD 09/19/2019 01:09 P
== END ==
LOC: M RAD 10:00
PROVIDERS: ATTEND Advanced Practice Midwife
DX: Z34.82 Encounter for supervision of other normal pregnancy, second trimester (principal)

== ENCOUNTER → 2019-10-19 | Outpatient (CLI) | payer OTHER ==
[~2019-10-19] VITALS: Ht 162.6 cm; Wt 75.5 kg
[~2019-10-19] MED LIST changes: +CLINDAMYCIN 150 MG CAP PO SCH; +PRENTAB9 PO
[2019-10-19 11:57] VITALS: BP 110/57
[2019-10-19 12:46] LABS: APPEARANCE, URINE MANUAL HAZY (CLEAR)
[2019-10-19 12:47] LABS: COLOR, URINE MANUAL DK YELLOW (YELLOW)
[2019-10-19 12:48] LABS: GLUCOSE, URINE (UA) MANUAL NEGATIVE (NEGATIVE); PROTEIN, URINE MANUAL 2+ mg/dL (NEGATIVE); SPECIFIC GRAVITY,URINE MANUAL 1.005 (1.002-1.035)
[2019-10-19 12:49] LABS: BILIRUBIN, URINE MANUAL NEGATIVE (NEGATIVE); BLOOD URINE MANUAL TRACE (NEGATIVE); KETONE, URINE MANUAL 3+ mg/dL (NEGATIVE); LEUKOCYTE ESTERASE, URINE MAN TRACE (NEGATIVE); NITRITE, URINE MANUAL NEGATIVE (NEGATIVE); UROBILINOGEN, URINE MANUAL NORMAL (NORMAL)
[2019-10-19 12:54] LABS: WBC, URINE 40-50 /hpf (0-3)
[2019-10-19 12:55] LABS: SQUAMOUS EPITHELIAL CELL URINE LARGE AMOUNT /hpf (SMALL AMT)
[2019-10-19 12:56] LABS: BACTERIA, URINE LARGE AMOUNT; HYALINE CAST, URINE 0-1 /lpf (0-1)
[2019-10-19 12:57] LABS: MUCUS, URINE LARGE AMOUNT (NEGATIVE)
[2019-10-19 13:15] VITALS: BP 103/52
--- NOTE | 2019-10-19 13:26 | REP ---
Clinical: Pain cramping Comparison: 09/19/2019 . Findings: Examination demonstrates a single live intrauterine in cephalic presentation. motion is identified by technologist. Placenta is noted fundal and grade I without evidence for placenta previa or abruption. Amniotic fluid volume is normal. Cervix measures 4.3 cm in length and appears closed. No evidence for nuchal cord. Gestational age by LMP 26 weeks 6 days with MAE 01/19/2020 . Gestational age by current measurements 27 weeks 3 days with MAE 01/15/2020 . FHR equals 150 beats per minute. Estimated weight 1016 grams ( 46th percentile). Anatomical assessment is unremarkable and without obvious abnormality. Impression: Single live intrauterine in cephalic presentation. No gross abnormalities are identified. Electronically Signed by Norm Bowser MD 10/19/2019 01:18 P
--- NOTE | 2019-10-19 13:48 | IPNPDOC ---
Text Note Date of Service The patient was seen on 10/19/19. NOTE Outpatient 29yo MAE 01/19/2020. Presents @ 26+6wks with complaints of bleeding this am and lower right quadrant discomfort. Pt has recently been tx with azithromycin for pneumonia. Harsh cough persists. Denies lOF or regular UC. Fetus is active. NST reassuring for gestation UA shows trace blood, trace leuk esterase, 2+ protein and 3+ ketones Sono shows cephalic SIUP, 46% growth. Placenta is fundal without evidence previa or abruption normal fluid Spec exam, cervix LTC, no evidence of vaginal bleeding. GC/CT obtained Discharged home with clindamycin PO TID x 10 days for UTI. Enc increased fluids and food. Keep next appt NV VS,Fishbone, I+O VS, Fishbone, I+O Vital Signs Date Time Temp Pulse Resp B/P (MAP) Pulse Ox O2 Delivery O2 Flow Rate FiO2 10/19/19 13:15 98.2 86 18 103/52 (69) Elisa Coffman CNM Oct 19, 2019 13:48
[2019-10-19 14:28] LABS: CHLAMYDIA DNA AMPLIFICATION NEGATIVE (NEGATIVE); GC DNA AMPLIFICATION NEGATIVE (NEGATIVE)
== END ==
LOC: M LDO 11:30
PROVIDERS: ATTEND Advanced Practice Midwife
DX: O26.852 Spotting complicating pregnancy, second trimester (principal); R10.31 Right lower quadrant pain; O23.40 Unspecified infection of urinary tract in pregnancy, unspecified trimester; Z3A.26 26 weeks gestation of pregnancy

== ENCOUNTER → 2019-12-19 | Outpatient (CLI) | payer OTHER ==
[~2019-12-19] MED LIST changes: -CLINDAMYCIN 150 MG CAP PO SCH
[2019-12-19 09:31] LABS: HEMATOCRIT 34.7 % (36.0-47.0); HEMOGLOBIN 10.9 g/dl (12.0-15.5); MEAN CORPUSCULAR HGB CONC 31.4 g/dl (32.0-36.5); MEAN CORPUSCULAR VOLUME 89.2 fl (80.0-96.0); PLATELET COUNT, AUTOMATED 416 10^3/uL (150-450); RED BLOOD COUNT 3.89 10^6/uL (4.00-5.40)
== END ==
LOC: M LAB 07:49
PROVIDERS: ATTEND Advanced Practice Midwife
DX: Z34.83 Encounter for supervision of other normal pregnancy, third trimester (principal); Z3A.00 Weeks of gestation of pregnancy not specified

== ENCOUNTER → 2019-12-20 | Outpatient (REF) | payer OTHER | LOC: M SFHCWAGY 16:54 | PROVIDERS: ATTEND Advanced Practice Midwife | DX: Z36.85 Encounter for antenatal screening for Streptococcus B (principal) ==

== ENCOUNTER → 2019-12-20 | Outpatient (CLI) | payer OTHER | LOC: M PLALAB 13:01 | PROVIDERS: ATTEND Advanced Practice Midwife | DX: Z34.93 Encounter for supervision of normal pregnancy, unspecified, third trimester (principal); Z3A.00 Weeks of gestation of pregnancy not specified ==

== ENCOUNTER 2020-01-19 00:01 | Outpatient (CLI) | payer OTHER ==
[~2020-01-19] VITALS: Ht 162.6 cm; Wt 77.6 kg
[2020-01-19 00:22] VITALS: BP 116/68
[2020-01-19] MEDS ORDERED: IRON27TA2 PO (00:31)
[2020-01-19] MEDS ORDERED: TUMS500C PO (00:31)
--- NOTE | 2020-01-19 00:53 | IPNPDOC ---
Text Note Date of Service The patient was seen on 01/19/20. NOTE Triage Subjective: Patient is a at 39.6wk gestation based on LMP and consistent with first trimester ultrasound. MAE of 01/19/2020. Patient presents to L&D c/o painful uterine contractions since 2099 with hip pain. Denies leakage of fluid or vaginal bleeding. Reports positive movement. Objective: Alert and oriented x3, no apparent distress. SVE 60/-2. No change from patient's stated exam in the office yesterday. No leakage of fluid noted or vaginal bleeding. FHR 125 with minimal to moderate variability. Mild contractions every 2-3 minutes. Assessment: Latent labor, FHR category 1 predominately. Plan: Urinalysis showed trace ketones, specific gravity 1.023. Increase oral fluid intake. Given water and juice to drink. Encouraged Tylenol PO and rest at home. Reviewed plan for IOL on 01/20/2020. Reviewed access to care and danger signs. VS,Fishbone, I+O VS, Fishbone, I+O Vital Signs Date Time Temp Pulse Resp B/P (MAP) Pulse Ox O2 Delivery O2 Flow Rate FiO2 01/19/20 00:22 98.2 108 16 116/68 (84) Elisa Coffman CNM Jan 19, 2020 00:53
[2020-01-19 01:07] LABS: APPEARANCE, URINE HAZY (CLEAR); BACTERIA, URINE AUTO 1+ (NEGATIVE); BILIRUBIN, URINE AUTO NEGATIVE (NEGATIVE); BLOOD, URINE BLOOD NEGATIVE (NEGATIVE); COLOR, URINE YELLOW (YELLOW); GLUCOSE, URINE (UA) AUTO NEGATIVE (NEGATIVE); KETONE, URINE AUTO TRACE mg/dL (NEGATIVE); LEUKOCYTE ESTERASE, URINE AUTO TRACE (NEGATIVE); MUCUS, URINE SMALL (NEGATIVE); NITRITE, URINE AUTO NEGATIVE (NEGATIVE); PROTEIN, URINE AUTO NEGATIVE (NEGATIVE); RBC, URINE AUTO 3 /HPF (0-3); SPECIFIC GRAVITY URINE AUTO 1.023 (1.002-1.035); SQUAMOUS EPITHELIAL CELL UR AU 1 /HPF (0-6); UROBILINOGEN, URINE AUTO 0.2 mg/dL (0.0-2.0); WBC, URINE AUTO 9 /HPF (0-3)
[2020-01-20] MEDS ORDERED: MAPA500T2 PO (08:00)
== END 2020-01-19 01:21 | disposition home or self-care (01) ==
LOC: M LDO 00:01
PROVIDERS: ATTEND Advanced Practice Midwife
DX: O47.1 False labor at or after 37 completed weeks of gestation (principal); Z3A.39 39 weeks gestation of pregnancy; Z88.0 Allergy status to penicillin; Z88.2 Allergy status to sulfonamides; Z88.8 Allergy status to other drugs, medicaments and biological substances; Z79.899 Other long term (current) drug therapy

== ENCOUNTER 2020-01-20 07:29 | Inpatient (IN) | payer OTHER ==
[2020-01-20] VITALS (21 sets, daily range): BP systolic 101–127; BP diastolic 56–79
[~2020-01-20] VITALS: Ht 162.6 cm; Wt 79.6 kg
[~2020-01-20 07:29] MED LIST changes: +IRON27TA2 PO; +TUMS500C PO
[2020-01-20] MEDS ORDERED: MAPA500T2 PO (08:00)
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
[2020-01-20] MEDS: miSOPROStol 50 MCG 1/2 TAB (S0191) SL SCH ×5 (09:01→22:55)
[2020-01-20 09:16] LABS: HEMATOCRIT 33.2 % (36.0-47.0); HEMOGLOBIN 10.9 g/dl (12.0-15.5); MEAN CORPUSCULAR HEMOGLOBIN 28.8 pg (27.0-33.0); MEAN CORPUSCULAR HGB CONC 32.8 g/dl (32.0-36.5); MEAN CORPUSCULAR VOLUME 87.6 fl (80.0-96.0); PLATELET COUNT, AUTOMATED 342 10^3/uL (150-450); RED BLOOD COUNT 3.79 10^6/uL (4.00-5.40)
[2020-01-20] MEDS ORDERED: OXYTOCIN 30 UNITS IN 0.9% NaCl 500ML IV BAG (J2590) As Ordered ONE (21:18)
[2020-01-20] MEDS ORDERED: FENTANYL 2MCG/ML ROPIVACAINE 0.2% IN 0.9% NACL 100ML IVBAG As Ordered ONE (21:30)
[2020-01-20] MEDS: FENTANYL/ROPIVACAINE/NACL BAG 100 ML EPIDURAL SCH (22:24)
[2020-01-20] MEDS ORDERED: EPIDURAL/PCA KEYS XX PRN (22:45)
[2020-01-20] MEDS ORDERED: ONDANSETRON 4MG/2ML VIAL (J2405) IV PRN (22:45)
[2020-01-20] MEDS ORDERED: LACTATED RINGER'S 1000 ML IV PRN (22:45)
[2020-01-20] MEDS ORDERED: ePHEDrine SULFATE 25 MG/5 ML(5MG/ML) SYRINGE IV PRN (22:45)
[2020-01-20] MEDS ORDERED: EPIDURAL COMMENT XX SCH (22:45)
[2020-01-20] MEDS ORDERED: NALOXONE INJ 0.4 MG/1 ML VIAL (J2310) IV PRN (22:45)
[2020-01-20] MEDS ORDERED: REFRIGERATOR IV KEYS XX PRN (22:45)
[2020-01-20] MEDS ORDERED: diphenhydrAMINE INJ 50MG/ML VIAL (J1200) IV PRN (22:45)
[2020-01-20] MEDS ORDERED: LR 1,000 ML IV ONE (23:00)
[2020-01-20] MEDS: LR 1,000 ML IV SCH (23:10)
[2020-01-20] MEDS ORDERED: CALCIUM CARBONATE 500 MG CHEW U/D PO PRN (23:15)
[2020-01-21] VITALS (36 sets, daily range): BP systolic 91–133; BP diastolic 53–79
[2020-01-21] MEDS ORDERED: OXYTOCIN DRIP 30 UNITS in IV 1 EA IV SCH ×2 (03:45→10:47)
[2020-01-21] MEDS ORDERED: FENTANYL 2MCG/ML ROPIVACAINE 0.2% IN 0.9% NACL 100ML IVBAG As Ordered ONE (04:23)
[2020-01-21] MEDS: FENTANYL/ROPIVACAINE/NACL BAG 100 ML EPIDURAL SCH (04:33)
--- NOTE | 2020-01-21 08:12 | IPNPDOC ---
Obstetrical Progress Note Date of Service Jan 21, 2020 Subjective Patient reports she is comfortable with her epidural. She reports intermittent pelvic pressure. Denies complaints. Objective Vital Signs Date Time Temp Pulse Resp B/P (MAP) Pulse Ox O2 Delivery O2 Flow Rate FiO2 01/21/20 06:58 78 01/21/20 06:55 98.9 01/21/20 06:42 91/54 (66) 01/21/20 05:03 16 97 Room Air Assessment Heart Rate (FHR): 130 Variability: Moderate Accelerations: Positive Decelerations: None Heart Rate Tracing: Category I Tocometer Contractions: Yes Frequency: regular, every 1-3 min. (2-3 minutes) Duration: greater than 90 seconds Strength: palpated as moderate Sterile Vaginal Examination Dilation: 6 cm (normal bloody show) Effacement (%): 80% Station: -1 Cervical Consistency: Soft Cervical Position: Anterior Postion/Presentation: Cephalic presentation Assessment and Plan Age: 29 : 11 Term: 2 Pre-term: 0 Abortions: 8 Livin Weeks & Days 40.2wk Status: Reassuring Group B Streptococcus: Negative Anticipate: Vaginal Delivery Additional Comments IV Pitocin is at 4 mu/min CORDELIA NOVAK CNM Jan 21, 2020 08:12
[2020-01-21] MEDS: LR 1,000 ML IV SCH (08:28)
[2020-01-21] MEDS: PRENATAL VITAMINS CHEWABLE TABLET PO SCH (09:00)
--- NOTE | 2020-01-21 10:47 | DNPDOC ---
[facility] Delivery Note Delivery Note DATE OF DELIVERY: 01/21/2020 at 1005 PREDELIVERY DIAGNOSIS: 40-2/7 weeks' gestation and labor. POST DELIVERY DIAGNOSIS: Delivered. PROCEDURE: Spontaneous vaginal delivery. PROVIDER: Valorie Tian, Student Nurse-Process Developer assisted by Cordelia Edward CNM, TALHA ANESTHESIA: Epidural. ESTIMATED BLOOD LOSS: 250 mL. FINDINGS: 6 pound 12 ounce (3050g) viable male , Score 9/9. DELIVERY SUMMARY: Patient is a 29-year-old 11 now para 3-0-8-3 who was admitted to labor and delivery for elective induction of labor. She received an epidural for pain management. Patient was induced using misoprostol, cook's catheter and IV Pitocin. She progressed to full dilation at 0955 and pushed to a living male in the OA position with restitution to LOT at 1005. The anterior shoulder was delivered with ease and the corpus immediately followed. The infant was placed on the maternal abdomen, [id number], active and crying. The cord was clamped times 2 and cut by the FOB after pulsation ceased. A 3- vessel cord was noted. The placenta delivered spontaneously and intact at 1009. Uterine hemostasis was achieved via rapid infusion of IV Pitocin at 999 ml/hr for 30 units in 500ml NS and fundal massage. The vagina, cervix and perineum were inspected and found to have a small left labial and left vaginal abrasion that were not repaired due to good hemostasis. Mom plans to breast and bottle feed and attempted in the room. Both mom and baby are in stable condition. They plan to name the baby "Radha." All counts of instruments and sponges are correct. CORDELIA EDWARD CNM Jan 21, 2020 10:47
[2020-01-21] MEDS ORDERED: DIBUCAINE 1% OINTMENT 30GM TOP PRN (11:00)
[2020-01-21] MEDS ORDERED: METHYLERGONOVINE MALEATE 0.2 MG TAB PO PRN (11:00)
[2020-01-21] MEDS ORDERED: ANUSOL HC CREAM 30GM TOP PRN (11:00)
[2020-01-21] MEDS ORDERED: RHOGAM 300 MCG (1500 IU) INJ (J2790) IM SCH (11:00)
[2020-01-21] MEDS ORDERED: IBUPROFEN 600 MG TAB PO PRN (11:00)
[2020-01-21] MEDS ORDERED: MEASLES,MUMPS,RUBELLA VACCINE INJ (MMR-II) (90707) SC SCH (11:00)
[2020-01-21] MEDS ORDERED: ACETAMINOPHEN TAB 650MG DOSE (2X325MG) PO PRN (11:00)
[2020-01-21] MEDS: ACETAMINOPHEN 500 MG TAB PO PRN ×2 (12:25→18:19)
[2020-01-21] MEDS: IBUPROFEN 800 MG TAB PO PRN (16:00)
[2020-01-21] MEDS ORDERED: MOM 30ML SUSPENSION UDC PO PRN (18:15)
[2020-01-21] MEDS: DOCUSATE SODIUM 100 MG CAP PO PRN (18:18)
[2020-01-22] MEDS: IBUPROFEN 800 MG TAB PO PRN ×3 (00:17→16:42)
[2020-01-22 05:58] VITALS: BP 108/58
--- NOTE | 2020-01-22 06:59 | IPNPDOC ---
Progress Note Date of Service: Jan 22, 2020 Day#: 1 Progress Note SUBJECT: Aylin is a 29-year-old 11 now Para 3-0-8-3 status post uncom plicated spontaneous vaginal delivery at 40-1/7 weeks' gestation doing well day # 1. She has been ambulating, voiding spontaneously without issue and tolerating regular diet. Breast feeding without issue. Reports lochia is like a normal period. OBJECTIVE: VITAL SIGNS: Within normal limits, afebrile. Alert and oriented times three. Breath sounds clear to auscultation. Heart rate: Regular rate and rhythm, no murmurs, rubs or gallops. Abdomen: Fundus firm at U-1. Soft, appropriately tender to palpation. Minimal lochia. ASSESSMENT: day #1. Vitals within normal limits, afebrile, hemodynamically stable with no evidence of infection. PLAN: 1. Discharge to home tomorrow. 2. Tylenol and Motrin for pain. 3. Encourage breast feeding and ambulation. 4. Routine care. VS, I&O, 24H, Fishbone Vital Signs/I&O Vital Signs Date Time Temp Pulse Resp B/P (MAP) Pulse Ox O2 Delivery O2 Flow Rate FiO2 01/22/20 05:58 98.8 80 17 108/58 (75) 98 Room Air I&O- Last 24 Hours up to 6 AM 01/22/20 06:00 Intake Total 3435.6 ml Output Total 1975 ml Balance 1460.6 ml CORDELIA NOVAK CNM Jan 22, 2020 06:59
[2020-01-22] MEDS: PRENATAL VITAMINS CHEWABLE TABLET PO SCH (08:01)
[2020-01-22 08:21] VITALS: BP 127/81
[2020-01-22] MEDS: ACETAMINOPHEN 500 MG TAB PO PRN ×2 (12:47→21:03)
[2020-01-22 18:00] VITALS: BP 107/61
[2020-01-22 18:09] VITALS: BP 107/61
[2020-01-22] MEDS: DOCUSATE SODIUM 100 MG CAP PO PRN (21:03)
[2020-01-23] MEDS: IBUPROFEN 800 MG TAB PO PRN (01:07)
[2020-01-23] MEDS: PRENATAL VITAMINS CHEWABLE TABLET PO SCH (07:51)
[2020-01-23] MEDS: ACETAMINOPHEN 500 MG TAB PO PRN (08:09)
== END 2020-01-23 11:35 | disposition home or self-care (01) | DRG 560 ==
LOC: M LDI 07:29 → M PCU 01-21 10:15 → M LDI 01-21 10:29 → M OBS 01-21 16:13
PROVIDERS: ADMIT Specialist; ATTEND Specialist
PROC: 10E0XZZ Delivery of Products of Conception, External Approach (ICD-10-PCS; principal; 2020-01-21)
PROC: 3E033VJ Introduction of Other Hormone into Peripheral Vein, Percutaneous Approach (ICD-10-PCS; 2020-01-21)
PROC: 3E0DXGC Introduction of Other Therapeutic Substance into Mouth and Pharynx, External Approach (ICD-10-PCS; 2020-01-21)
DX: O48.0 Post-term pregnancy (principal); Z37.0 Single live birth; Z3A.40 40 weeks gestation of pregnancy; Z87.59 Personal history of other complications of pregnancy, childbirth and the puerperium; Z88.0 Allergy status to penicillin; Z88.2 Allergy status to sulfonamides; Z88.8 Allergy status to other drugs, medicaments and biological substances; F17.200 Nicotine dependence, unspecified, uncomplicated; O99.334 Smoking (tobacco) complicating childbirth

== ENCOUNTER → 2020-07-24 | Outpatient (CLI) | payer OTHER ==
[~2020-07-24] MED LIST changes: +MAPA500T2 PO
[2020-07-24 13:09] LABS: BASO % 0.4 % (0.0-1.0); EOS # 0.2 10^3/uL (0.0-0.5); EOS % 1.4 % (0.0-3.0); HEMATOCRIT 38.2 % (36.0-47.0); HEMOGLOBIN 12.5 g/dl (12.0-15.5); LYMPH # 2.6 10^3/uL (1.5-5.0); LYMPH % 23.7 % (24.0-44.0); MEAN CORPUSCULAR HEMOGLOBIN 29.1 pg (27.0-33.0); MEAN CORPUSCULAR HGB CONC 32.7 g/dl (32.0-36.5); MEAN CORPUSCULAR VOLUME 88.8 fl (80.0-96.0); MONO # 0.6 10^3/uL (0.0-0.8); MONO % 5.6 % (0.0-5.0); NEUTROPHILS # 7.4 10^3/uL (1.5-8.5); NEUTROPHILS % 68.5 % (36.0-66.0); PLATELET COUNT, AUTOMATED 334 10^3/uL (150-450); WHITE BLOOD COUNT 10.8 10^3/uL (4.0-10.0)
[2020-07-24 14:01] LABS: HEPATITIS C VIRUS ABY INDEX 0.3 INDEX (<0.8); HIV 1&2 SCREEN CENTAUR NEGATIVE (NEGATIVE)
[2020-07-24 20:06] LABS: CHLAMYDIA DNA AMPLIFICATION NEGATIVE (NEGATIVE); GC DNA AMPLIFICATION NEGATIVE (NEGATIVE)
== END ==
LOC: M PLALAB 10:41
PROVIDERS: ATTEND Advanced Practice Midwife
DX: Z34.82 Encounter for supervision of other normal pregnancy, second trimester (principal); Z3A.00 Weeks of gestation of pregnancy not specified

== ENCOUNTER → 2020-08-21 | Outpatient (CLI) | payer OTHER ==
--- NOTE | 2020-08-28 06:34 | REP ---
OBSTETRIC SONOGRAPHY HISTORY: Supervision of for anatomy. FINDINGS: Scanning through the gravid uterus demonstrates a single intrauterine gestation in a variable lie. motion is observed and heart rate is recorded at 153 beats per minute. The placenta is seen on transvaginal image to extend across the internal cervical os and is noted both anteriorly and posteriorly. Amniotic fluid is subjectively normal. Three vessel umbilical cord is seen. Bilateral small choroid plexus cysts are seen 2 mm in diameter. Four chamber heart and outflow tract views are less than optimally achieved due to position and maternal body habitus. The following additional anatomic structures are identified and felt to be unremarkable: cranium, cavum septum pellucidum, falx, cerebral ventricles, cerebellum and cisterna magna, nuchal fold, face profile, nose, and lips, diaphragm, left-sided stomach, kidneys and bladder, spine, upper and lower extremities. BIOMETRY CHART: BPD 4.5 cm 19 weeks 3 days Head circumference 16.0 cm 18 weeks 6 days Abdominal circumference 14.5 cm 19 weeks 5 days Femur length 2.9 cm 19 weeks 0 days Humeral length 3.0 cm 19 weeks 5 days AC/HC ratio 1.11 Normal Cephalic index 0.78 Normal Estimated weight 290 grams, 0 pounds 10 ounces, 45th percentile for 19 weeks 3 days. IMPRESSION: * Viable single intrauterine gestation at 19 weeks 3 days by todays composite criteria. Estimated date of delivery (MAE) by todays sonography 01/12/2021. cardiac views less than optimally achieved. Small bilateral choroid plexus cysts. * Findings consistent with complete placenta previa. MTDD
== END ==
LOC: M WHC 08:05
PROVIDERS: ATTEND Advanced Practice Midwife
DX: Z34.82 Encounter for supervision of other normal pregnancy, second trimester (principal); Z3A.19 19 weeks gestation of pregnancy

== ENCOUNTER → 2020-09-09 | Outpatient (REF) | payer OTHER | LOC: M SFHCWAGY 17:03 | PROVIDERS: ATTEND Obstetrics & Gynecology | DX: Z86.14 Personal history of Methicillin resistant Staphylococcus aureus infection (principal) ==

== ENCOUNTER → 2020-09-12 | Outpatient (CLI) | payer OTHER ==
--- NOTE | 2020-09-12 14:20 | REP ---
INDICATION: F/U ANATOMY - HEART/VOTS/PLACENTA PREVIA COMPARISON: 08/21/2020 TECHNIQUE: Transabdominal obstetrical ultrasound with color Doppler evaluation. FINDINGS: Examination demonstrates a single live intrauterine in variable presentation. motion is identified by technologist. Placenta is noted anterior and grade 1 with evidence for complete placenta previa. Amniotic fluid volume is normal. Cervix measures 4.1 cm in length and appears closed.. Gestational age by LMP 22 weeks 4 days with MAE 01/12/2021. Gestational age by current measurements 23 weeks 0 days with MAE 01/09/2021. FHR equals 144 beats per minute. Estimated weight 493 grams (31stpercentile). Anatomical assessment demonstrates normal choroid plexus, and heart/ventricular outflow tracts. IMPRESSION: 1. Fetus in variable presentation demonstrating appropriate interval growth. 2. Complete placenta previa. 3. In conjunction with prior examination, anatomical assessment is complete and normal. <Electronically signed by Norm Bowser > 09/12/20 [id number]
== END ==
LOC: M WHC 08:43
PROVIDERS: ATTEND Obstetrics & Gynecology
DX: O44.00 Complete placenta previa NOS or without hemorrhage, unspecified trimester (principal); Z3A.23 23 weeks gestation of pregnancy

== ENCOUNTER 2020-10-25 21:09 | Outpatient (CLI) | payer OTHER ==
[~2020-10-25] VITALS: Ht 162.6 cm; Wt 84.5 kg
[~2020-10-25 21:09] MED LIST changes: +RISP-8; -RISP1TAB3
[2020-10-25 21:33] VITALS: BP 111/62
[2020-10-25] MEDS ORDERED: LACTATED RINGER'S 1000 ML IV STA (21:44)
[2020-10-25] MEDS ORDERED: BETAMETHASONE SOLUSPAN 6MG/ML 5ML VIAL (J0702 PER 3MG) IM ONE (21:45)
--- NOTE | 2020-10-25 22:18 | HPEPDOC ---
Obstetrical History & Physical General Date of Admission History of Present Illness 30-year-old G17, P3-0-13-3 at 28+5 weeks gestation. EDC of 01/12/21; dated by 11 week US. Known history of complete placenta previa. Last US 09/12/20. One previous light bleeding episode on/around 10/06/20 ( corticosteroids not given). Presents today after experiencing a large amount of blood loss and passage of several large blood clots. Occurred spontaneously. Denies any recent rigorous activity or vaginal intercourse. Denies any loss of fluid or abdominal pain/uterine contractions. Reports regular movement. ROS: no HURTADO, cp, sob, fever/chills/nausea/vomiting. course: 1. Complete placenta previa 2. Smoking during 3. History of RPL; unknown if she's had a workup 4. Bipolar disorder; only takes Buspar during this 5. Mild intermittent asthma 6. Close interval (last term delivery was in 01/2020) PMH: Bipolar, PTSD SH: dental extractions Meds: vitamin, Buspar All: PCN, Macrobid, Sulfa, Tramadol; all these cause rash/hives BOAT RIGGER: No STI or dysplasia OB: Term x 3 (2011, 2012, 2019) Sochx: No tobacco, alcohol or drug use FamHx: non-contributory labs: Blood type O+, antibody screen negative, HepBsAg neg, HIV neg, rubella immune, Hep C antibody negative, RPR nonreactive, CT/GC neg, urine culture negative, GBS negative Imaging: US 31st percentile, complete placenta previa, anatomic assessment complete and normal. Past Medical History Allergies Coded Allergies: Nitrate Analogues (Verified Allergy, Unknown, 08/21/19) Penicillins (Verified Allergy, Unknown, 08/21/19) Sulfa (Sulfonamide Antibiotics) (Verified Allergy, Unknown, 08/21/19) ketorolac (Verified Allergy, Unknown, 08/21/19) nitrofurantoin (Verified Allergy, Unknown, 08/21/19) tramadol (Verified Allergy, Unknown, 08/21/19) Medications Scheduled Calcium Carbonate (Tums) 200 Mg Tab.chew, 2 TAB PO QID for cough and congestion Ferrous Gluconate (Iron) 236 Mg Tablet, 1 TAB PO DAILY No.137/Iron/Folic Acd ( Vitamin Tablet) 1 Each Tablet, 1 TAB PO DAILY Miscellaneous Medications Acetaminophen (Mapap) 500 Mg Tablet, 1,000 MG PO Physical Examination Physical Examination GENERAL: Alert and oriented times three. BREAST: . ABDOMEN: Gravid and non-tender to touch. HEART RATE: Regular rate and rhythm. LUNGS: Clear to auscultation (CTA). EXTREMITIES: No edema. No clonus. Deep tendon reflexes (DTRs) + 2. SSE: cervix closed/1cm, no active/brisk bleeding. Light trickle of blood from os. Several blood clots removed from the vaginal vault. AUS,ferrer: transverse. complete previa noted. EFM: Reactive, normal baseline of 130bpm. +Accels, no decels, moderate variability [place]: No contraction pattern detected. Pertinent Laboratoy Data Blood Type: O+ Assessment/Plan Assessment 30yo -0-0-13-3. 28+5 weeks with a complete placenta previa and significant bleeding. Reassuring status. Stable maternal status. Stable enough for transfer of care to [facility]. Plan Transfer activated; accepting physician at [facility] is Dr. Ontiveros. Betamethasone administered. IV access x 2 ; LR 125ml/hr en route DO DAVIAN Harden JONATHAN R. DO Oct 25, 2020 22:18
[2020-10-25] MEDS ORDERED: TERBUTALINE SULFATE 1 MG/ML VIAL (J3105) As Ordered ONE (22:20)
[2020-10-25 22:35] VITALS: BP 104/58
[2020-10-25] MEDS ORDERED: BUSP30TA PO (23:46)
== END 2020-10-26 00:10 | disposition short-term general hospital (02) ==
LOC: M LDO 21:09
PROVIDERS: ATTEND Obstetrics & Gynecology
DX: O44.13 Complete placenta previa with hemorrhage, third trimester (principal); Z3A.28 28 weeks gestation of pregnancy
CPT/HCPCS: 96372; J0702

== ENCOUNTER → 2020-10-31 | Outpatient (CLI) | payer OTHER ==
[~2020-10-31] MED LIST changes: +BUSP30TA PO
--- NOTE | 2020-10-31 13:07 | REP ---
INDICATION: PLACENTA PREVIA,BPP. COMPARISON: Prior obstetrical ultrasound studies dated 08/21/2020 and 09/12/2020. TECHNIQUE: Multiple ultrasonographic images of the fetus. FINDINGS: There is a single intrauterine gestation in a cephalic presentation. The placenta is in the lower uterine segment and lies completely across the internal cervical os is a complete placenta previa. This is unchanged. Placenta is grade 2. Cervix measures 3.2 cm in length. The amniotic fluid volume subjectively is normal. heart rate is 140 beats per minute. The composite ultrasound gestational age by the ultrasound today is 29 weeks 6 days. The MAE is 01/10/2021. Gestational age by the 1st study is 29 weeks 4 days with an MAE of 01/12/2021. Gestational age by LMP is 29 weeks 4 days with an MAE of 01/12/2021. weight and 1414 g, 3 lb-1 oz. This is the 37th percentile for 29 weeks 4 days. The anatomy has been previously assessed. No anomalies were identified. IMPRESSION: Complete placenta previa, unchanged. dating and weight as discussed above. <Electronically signed by Joon Villar > 10/31/20 [id number]
== END ==
LOC: M WHC 08:41
PROVIDERS: ATTEND Obstetrics & Gynecology
DX: O44.03 Complete placenta previa NOS or without hemorrhage, third trimester (principal); Z3A.29 29 weeks gestation of pregnancy

== ENCOUNTER → 2020-11-24 | Outpatient (REF) | payer OTHER ==
[2020-11-24 12:32] LABS: HEMATOCRIT 35.5 % (36.0-47.0); MEAN CORPUSCULAR HEMOGLOBIN 27.2 pg (27.0-33.0); MEAN CORPUSCULAR VOLUME 87.7 fl (80.0-96.0); PLATELET COUNT, AUTOMATED 384 10^3/uL (150-450); RED BLOOD COUNT 4.05 10^6/uL (4.00-5.40); WHITE BLOOD COUNT 12.3 10^3/uL (4.0-10.0)
== END ==
LOC: M PLALAB 10:22
PROVIDERS: ATTEND Obstetrics & Gynecology
DX: O99.810 Abnormal glucose complicating pregnancy (principal)

== ENCOUNTER → 2020-11-27 | Outpatient (CLI) | payer OTHER | LOC: M LAB 09:02 | PROVIDERS: ATTEND Obstetrics & Gynecology | DX: O99.810 Abnormal glucose complicating pregnancy (principal); Z3A.00 Weeks of gestation of pregnancy not specified ==

== ENCOUNTER → 2020-12-11 | Outpatient (REF) | payer OTHER ==
[~2020-12-11] MED LIST changes: +PERCOCET PO
== END ==
LOC: M PLALAB 16:09
PROVIDERS: ATTEND Obstetrics & Gynecology
DX: Z3A.36 36 weeks gestation of pregnancy (principal)

== ENCOUNTER 2020-12-12 11:10 | Inpatient (IN) | payer OTHER ==
[~2020-12-12] VITALS: Ht 162.6 cm; Wt 83.4 kg
[~2020-12-12 11:10] MED LIST changes: -PERCOCET PO
[2020-12-12] MEDS ORDERED: LACTATED RINGER'S 1000 ML IV STA (11:18)
[2020-12-12] MEDS ORDERED: LR 1,000 ML IV SCH ×2 (11:18→14:30)
[2020-12-12] MEDS ORDERED: CLINDAMYCIN 900 MG in IV 1 EA IV ONE (11:45)
[2020-12-12] MEDS ORDERED: BICITRA 30ML SOLN UDC PO ONE (11:45)
[2020-12-12] MEDS ORDERED: AZITHROMYCIN INJ 500 MG, VIAL MATE ADAPTER 1 EACH in D5W 250 ML IV ONE (11:45)
--- NOTE | 2020-12-12 12:07 | HPEPDOC ---
Obstetrical History & Physical General Date of Admission Dec 12, 2020 at 11:32 History of Present Illness Aylin is a 30 y/o -0-13-3 who presents to L&D via ambulance for vaginal bleeding. She started care at [facility] in the first trimester. complicated by Placenta Previa. Reports bleeding started at 0930, "it just poured out of me, I think my water broke." Contractions started upon arrival to L&D unit. Reports active movement. She is Betamethasone Complete (10/25/20 and 10/26/20) after a bleeding episode and transfer to [place]. Information Provided By: Patient Age: 30 : 17 Term: 3 Pre-term: 0 Abortions: 13 Livin Care Care: Good Care Dating Final EDC: Jan 12, 2021 Final EDC by: 1st trimester (US) LMP: March 30, 2020 1st Trimester Date: Jun 24, 2020 Weeks + Days: 11.1 EGA at Admission: 35.4 Antepartum Course Diagnos(e)s Placenta Previa Past Medical History Past Obstetrical History #1: Past Obstetrical History: Primgravida Date of Delivery: Apr 21, 2012 Gestation: 38 Type of Delivery: Spontaneous Vaginal Del. Sex of : Male (6lb 4oz) Past Obstetrical History #2: Date of Delivery: Jul 30, 2013 Gestation: 40.3 Type of Delivery: Spontaneous Vaginal Del. Sex of : Male (6lb 10 oz.) Past Obstetrical History #3: Past Obstetrical History: Multigravida Date of Delivery: Jan 21, 2020 Gestation: 40.2 Type of Delivery: Spontaneous Vaginal Del. Sex of : Male (6lb 12oz.) Complications: No DELPHI PROGRAMMER History: Spontaneous (x13), Abnormal Pap (2014) Past Medical History Medical History Smoker Asthma Anxiety Bipolar Disorder RAD PTSD MRSA + in 2015, negative 08/2020 Surgical History: Tooth extraction (All teeth were removed) Family History Significant Family History: No pertinent family hx Social History Marital Status: Single Family situation: Spouse/partner home (Mariusz Arroyo) Psychosocial History: Anxiety, Bipolar, PTSD * Smoker: current smoker Alcohol: Denies Drugs: denies Imunizations Tdap status: declined Allergies Coded Allergies: Penicillins (Verified Allergy, Unknown, 12/08/20) Sulfa (Sulfonamide Antibiotics) (Verified Allergy, Unknown, 12/08/20) ketorolac (Verified Allergy, Unknown, 12/08/20) nitrofurantoin (Verified Allergy, Unknown, 12/08/20) tramadol (Verified Allergy, Unknown, 12/08/20) Medications Scheduled Buspirone HCl (Buspirone HCl) 30 Mg Tablet, 30 MG PO BID No.137/Iron/Folic Acd ( Vitamin Tablet) 1 Each Tablet, 1 TAB PO DAILY Physical Examination Physical Examination GENERAL: Alert and oriented times three. BREAST: . ABDOMEN: Gravid and non-tender to touch. FETUS: Is vertex (VTX) by sterile vaginal examination (SVE), fetus is vertex (VTX) by Yaya. HEART RATE: Regular rate and rhythm. LUNGS: Clear to auscultation (CTA). EXTREMITIES: No edema. No clonus. Deep tendon reflexes (DTRs) + 2. SPECULUM: Bright red blood noted in vaginal vault, golf ball sized clot removed from vaginal vault. Cervix appears open, bleeding and membranes from cervical os noted. BEDSIDE U/S: Vertex presentation Pertinent Laboratoy Data Blood Type: O+ RBC Antibody Screen: Negative HIV: Negative Hepatitis B: Negative Hepatitis C: Negative Rapid Plasma Reagin: Nonreactive Rubella: Immune Chlamydia/Gonorrhea: Negative Group B Streptococcus: Unknown Glucose Tolerance Test: 135 Diag/Inter Therapy 3hr GTT: 89/172/158/119 Anatomy Ultrasound Ultrasound Date: Aug 21, 2020 Normal Anatomy: Yes (Choriod plexus cysts resolved.) Placenta Previa: Yes (Anterior to Posterior) Estimated Weight (grams): 290 Other Ultrasounds 09/12/20 Normal Choroid plexus, heart and VOTs, normal VICTOR MANUEL, 493g, complete placenta previa 10/31/20 VICTOR MANUEL normal, vertex, 1414g, complete placenta previa anterior to posterior in lower uterine segment Steroid Therapy Steroid Therapy: Yes Date #1: Oct 25, 2020 Date #2: Oct 26, 2020 Reason Vaginal Bleeding with Placenta Previa Vaginal Examination Dilation: 1cm Effacement: 50% Cervical Consistency: Soft Cervical Position: Posterior Presentation: Cephalic presentation (via U/S) Assessment Heart Rate (FHR): 150 Variability: Moderate Accelerations: Positive Decelerations: Variable Tocometer Contractions: Yes Frequency: regular, every 1-3 min. Duration: greater than 60 seconds Strength: palpated as mild, resting tone palp/soft Multi-drug resistant Organism: MRSA (+2015, negative 08/2020) Assessment/Plan Assessment IUP at 35.4 weeks Placenta Previa Vaginal Bleeding Possible PPROM Category 1 FHT, previously Category [address] Palmer, plan to deliver via C/Section today, he is on his way to the hospital. Admit and orient to Labor and Delivery. E Commerce Project Manager and consent for C/Section. Diet: NPO Group B Streptococcus (GBS) unknown. Labs and intravenous (IV) per unit protocol. Type and Cross 2 units. Lactated Ringers (LR): Bolus 1000 mL, then at 125 mL/hr. Cleocin 900mg IV for surgical prophylaxis. Anesthesia Consultation for Spinal and C/Section C-S as appropriate. Elisa Coffman CNM Dec 12, 2020 12:07
[2020-12-12 12:13] LABS: HEMOGLOBIN 11.2 g/dl (12.0-15.5); MEAN CORPUSCULAR HEMOGLOBIN 27.4 pg (27.0-33.0); MEAN CORPUSCULAR HGB CONC 32.9 g/dl (32.0-36.5); MEAN CORPUSCULAR VOLUME 83.1 fl (80.0-96.0); PLATELET COUNT, AUTOMATED 409 10^3/uL (150-450); RED BLOOD COUNT 4.09 10^6/uL (4.00-5.40); WHITE BLOOD COUNT 15.4 10^3/uL (4.0-10.0)
[2020-12-12 12:15] VITALS: BP 133/80
[2020-12-12] MEDS ORDERED: MORPHINE PRES-FREE INJ 10 MG/10 ML VIAL (J2274) As Ordered ONE (12:26)
[2020-12-12] MEDS ORDERED: OXYTOCIN INJ 10 UNITS/ML VIAL (J2590) As Ordered ONE (12:26)
[2020-12-12] MEDS ORDERED: NALOXONE INJ 0.4MG/1ML VIAL (J2310 PER 1MG) IV PRN ×2 (12:48)
[2020-12-12] MEDS ORDERED: METOCLOPRAMIDE INJ 10MG/2ML VIAL (J2765 PER 1) IV PRN ×2 (12:48→14:30)
[2020-12-12] MEDS ORDERED: NALBUPHINE HCL 10 MG/ML AMP (J2300) IV PRN (12:48)
[2020-12-12] MEDS ORDERED: diphenhydrAMINE 50MG/ML VIAL (J1200) IV PRN (12:48)
[2020-12-12] MEDS ORDERED: ONDANSETRON 4MG/2ML VIAL IV PRN ×3 (12:48→14:30)
[2020-12-12] MEDS ORDERED: dexameTHASONE 4 MG/ML 1ML VIAL (J1100 PER 1MG) As Ordered ONE (13:00)
[2020-12-12] MEDS ORDERED: ONDANSETRON 4MG/2ML VIAL As Ordered ONE (13:00)
[2020-12-12] MEDS ORDERED: AZTREONAM 2 GM in D5W MINI-BAG PLUS 50 ML IV SCH (13:00)
[2020-12-12] MEDS ORDERED: METOCLOPRAMIDE INJ 10MG/2ML VIAL (J2765 PER 1) As Ordered ONE (13:14)
[2020-12-12] MEDS ORDERED: fentaNYL 100 MCG/2 ML INJECTION (J3010) As Ordered ONE ×2 (13:19→14:32)
[2020-12-12] MEDS ORDERED: MIDAZOLAM INJ 2MG/2ML VIAL (J2250 PER 1MG) As Ordered ONE (13:19)
[2020-12-12 13:39] LABS: CORD GAS ABE V 0.1; CORD GAS HCO3 V 27.4 MEQ/L; CORD GAS O2 SAT V 65.8 %; CORD GAS PCO2 V 54.6 mmHg; CORD GAS PH V 7.318 UNITS; CORD GAS PO2 V 27.9 mmHg; CORD GAS SBC V 23.7 MEQ/L
[2020-12-12 13:42] LABS: CORD GAS ABE A -1.9; CORD GAS O2 SAT A 60.2 %; CORD GAS PCO2 A 50.9 mmHg; CORD GAS PH A 7.309 UNITS; CORD GAS PO2 A 25.5 mmHg; CORD GAS SBC A 21.9 MEQ/L; CORD GAS TCO2 A 26.6 MEQ/L
[2020-12-12] MEDS ORDERED: OXYTOCIN 30 UNITS IN 0.9% NaCl 500ML IV BAG (J2590) As Ordered ONE (13:48)
[2020-12-12] MEDS ORDERED: PHENYLephrine 500MCG 5ML (100MCG/ML) SYRINGE As Ordered ONE (13:48)
[2020-12-12] MEDS ORDERED: ePHEDrine SULFATE 25 MG/5 ML(5MG/ML) SYRINGE As Ordered ONE (13:48)
[2020-12-12] MEDS ORDERED: OXYTOCIN DRIP 30 UNITS in IV 1 EA IV SCH (14:04)
[2020-12-12] MEDS ORDERED: MEASLES,MUMPS,RUBELLA VACCINE INJ (MMR-II) (90707) SC SCH (14:15)
[2020-12-12] MEDS ORDERED: MOM 30ML SUSPENSION UDC PO PRN (14:15)
[2020-12-12] MEDS ORDERED: PERCOCET 5MG/325MG TAB PO PRN ×2 (14:15→14:30)
[2020-12-12] MEDS ORDERED: RHOGAM 300 MCG (1500 IU) INJ (J2790) IM SCH (14:15)
[2020-12-12] MEDS: fentaNYL 100 MCG/2 ML INJECTION (J3010) IV PRN ×4 (14:34→14:55)
[2020-12-12] MEDS ORDERED: PERCOCET 5MG/325MG TAB As Ordered ONE (15:00)
[2020-12-12] MEDS: PERCOCET 5MG/325MG TAB PO PRN ×2 (15:01→20:52)
[2020-12-12 16:00] VITALS: BP 111/70
[2020-12-12 16:30] VITALS: BP 118/60
[2020-12-12 17:00] VITALS: BP 112/55
[2020-12-12 18:00] VITALS: BP 104/59
[2020-12-12] MEDS: LR 1,000 ML IV SCH ×2 (18:20→22:00)
--- NOTE | 2020-12-12 18:47 | ROOPDOC ---
[facility] Report Of Operation Report of Operation DATE OF PROCEDURE: 12/12/20 SURGEON: Shahrzad Palmer M.D. JAVA J2EE APPLICATION DEVELOPER: None PROCEDURE: Primary section with Bilateral Sequoyah tubal ligation PREOPERATIVE DIAGNOSIS: 1. Placenta previa actively bleeding 2.Satisfied parity with undesired fertility POSTOPERATIVE DIAGNOSIS: 1. Placenta previa actively bleeding 2. Satisfied parity with undesired fertility ANESTHESIA: Spinal ESTIMATED BLOOD LOSS: 800 mL URINE OUTPUT: 50 mL INTRAVENOUS FLUIDS:2500 mL of lactated Ringer's solution PREOPERATIVE ANTIBIOTICS:. 2 g Azactam and 900 mg clindamycin OPERATIVE FINDINGS: Liveborn male , Apgars 9 and 9. Weight 2490gms or [id number] SPECIMENS: Bilateral segments of fallopian tubes DESCRIPTION OF PROCEDURE: After informed consent was obtained and written consent was reviewed. The patient was brought to the operating room where spinal anesthesia was placed. She was then placed in the supine position with a left lateral tilt. Salomon catheter was placed and to gravity. Patient was then prepped and draped in the normal sterile fashion. A timeout operating room was performed identifying the patient, procedure be performed as well as drug allergies. Anesthesia was tested and deemed to be adequate. Pfannenstiel skin incision was made and this was carried down to the underlying rectus fascia. The fascia was then scored and this incision was extended bilaterally. The fascia was then dissected off the underlying rectus muscle superiorly and inferiorly. The rectus muscles were then in the midline. The peritoneum is then entered. Vesicouterine peritoneum was then tented and excised and a bladder flap was created. Mobius retractor was then placed. Next, a curvilinear incision was then made in the lower uterine segment. Amniotomy was performed, productive, clear fluid. The head was brought to the level of the incision atraumatically and delivered along the shoulders and corpus. The cord was clamped x2. The infant was brought over to the warmer with a good cry. Placenta was drained and delivered grossly intact. The uterus was cleared of all clots and debris and the uterine incision was then closed using 0 Vicryl in a running locking fashion followed second layer of 0 Vicryl for imbrication in a nonlocking fashion. Attention was then turned to a bilateral Sequoyah tubal ligation. A window was created in the right mesosalpinx. This area was doubly ligated with 3-0 chromic and was excised with good hemostasis noted. In a similar fashion, the left fallopian tube was placed on traction. A window was created in the mesosalpinx. This area was doubly ligated with 3-0 chromic and was excised, and hemostasis was noted. The abdomen suctioned. Surgical sites reinspected and noted be h emostatic. The retractor was then removed. The anterior peritoneum was then reapproximated with 3-0 Vicryl. The rectus muscles were reapproximated 3-0 Vicryl. The fascia was then closed using 0 Vicryl in a running nonlocking fashion. The subcutaneous tissues was then irrigated and suctioned. Subcutaneous tissue was reapproximated using 3-0 Vicryl. Several subdermal stitch is placed using 3-0 Vicryl and the skin was closed with 4-0 Monocryl and subcuticular fashion. This incision was then cleaned and dried and was dressed. The patient was then taken to recovery in stable condition. All counts were correct. SHAHRZAD PALMER MD. Dec 12, 2020 18:47
[2020-12-12] MEDS: DOCUSATE SODIUM 100MG CAPSULE PO SCH (20:52)
[2020-12-12] MEDS: CLINDAMYCIN 900 MG in IV 1 EA IV SCH (20:58)
[2020-12-12] MEDS: AZTREONAM 1 GM in D5W MINI-BAG PLUS 50 ML IV SCH (21:59)
[2020-12-12 22:00] VITALS: BP 117/69
[2020-12-13 02:00] VITALS: BP 102/55
[2020-12-13] MEDS: PERCOCET 5MG/325MG TAB PO PRN ×3 (03:16→18:17)
[2020-12-13] MEDS: CLINDAMYCIN 900 MG in IV 1 EA IV SCH ×3 (03:44→20:46)
[2020-12-13] MEDS: AZTREONAM 1 GM in D5W MINI-BAG PLUS 50 ML IV SCH ×3 (05:15→21:51)
[2020-12-13 05:35] VITALS: BP 107/58
[2020-12-13] MEDS: IBUPROFEN 800 MG TAB PO SCH ×3 (05:45→21:50)
[2020-12-13] MEDS: LR 1,000 ML IV SCH ×3 (06:04→22:04)
--- NOTE | 2020-12-13 07:26 | IPNPDOC ---
Text Note Date of Service The patient was seen on 12/13/20. NOTE Inpatient Subjective: Aylin is a G16 now P3-1-13-4 s/p Primary C/Section for Placenta Previa and bleeding on arrival. Reports ambulating without difficulty, tolerating a regular diet, voiding spontaneously. Denies flatus. Pain well controlled with Percocet and Motrin. infant, plans to pump with in the NICU. Reports minimal lochia, no clots. Denies headache, visual changes, nausea, SOB, chest pain. Objective: Vital Signs: Normotensive, afebrile General: Alert and Oriented x3. Respiratory: Regular rate, no accessory muscle use. Abdomen: Soft, nontender, no distension. Fundus firm, midline at U-1. Dressing clean, dry, and intact. Extremities: No edema. No calf tenderness. Minimal lochia. Assessment: Postoperative Day #1 Plan: 1. May shower 2. Percocet and Motrin for pain. 3. Encourage and ambulation. 4. Nursing care per policy. VS,Erichbone, I+O VS, Erichbone, I+O Laboratory Tests 12/12/20 11:44 Vital Signs Date Time Temp Pulse Resp B/P (MAP) Pulse Ox O2 Delivery O2 Flow Rate FiO2 12/13/20 05:35 98.2 63 18 107/58 (74) 98 Room Air I&O- Last 24 Hours up to 6 AM 12/13/20 06:00 Intake Total 2390 ml Output Total 1850 ml Balance 540 ml Elisa Coffman CNM Dec 13, 2020 07:23
[2020-12-13 07:59] LABS: HEMATOCRIT 23.4 % (36.0-47.0); MEAN CORPUSCULAR HEMOGLOBIN 27.9 pg (27.0-33.0); MEAN CORPUSCULAR HGB CONC 32.9 g/dl (32.0-36.5); MEAN CORPUSCULAR VOLUME 84.8 fl (80.0-96.0); RED BLOOD COUNT 2.76 10^6/uL (4.00-5.40); WHITE BLOOD COUNT 20.3 10^3/uL (4.0-10.0)
[2020-12-13 08:08] LABS: HEMOGLOBIN 7.7 g/dl (12.0-15.5); PLATELET COUNT, AUTOMATED 275 10^3/uL (150-450)
[2020-12-13] MEDS ORDERED: BOOSTRIX/ADACEL VACCINE (DIPHTH/PERTUSS/ACELL/TETANUS) 0.5ML SYR IM ONE (09:00)
[2020-12-13] MEDS: PRENATAL VITAMINS CHEWABLE TABLET PO SCH (09:17)
[2020-12-13] MEDS: DOCUSATE SODIUM 100MG CAPSULE PO SCH ×2 (09:17→21:50)
[2020-12-13] MEDS: busPIRone 10 MG TAB PO SCH (09:18)
[2020-12-13 10:00] VITALS: BP 103/51
[2020-12-13 18:04] VITALS: BP 147/88
[2020-12-14] MEDS: PERCOCET 5MG/325MG TAB PO PRN ×4 (02:14→23:52)
[2020-12-14] MEDS: IBUPROFEN 800 MG TAB PO SCH ×3 (05:32→21:42)
[2020-12-14 05:57] VITALS: BP 103/58
[2020-12-14] MEDS: LR 1,000 ML IV SCH (06:04)
--- NOTE | 2020-12-14 08:52 | IPNPDOC ---
Progress Note Date of Service: Dec 14, 2020 Day#: 2 Progress Note SUBJECT: Doing well without complaints. Ambulating, voiding and pain is well-c ontrolled. Reports minimal lochia. OBJECTIVE: VITAL SIGNS: Within normal limits, afebrile. Alert and oriented times three. Abdomen: Fundus firm at U-2. Soft, NTTP. Incision: dressed Ext: neg calf tenderness. ASSESSMENT: /postoperative day #2 status post deliverywith BTL. Recovering in stable condition. PLAN: 1. Continue routine /postoperative care 2. Discharge plans for tomorrow VS, I&O, 24H, Fishbone Vital Signs/I&O Vital Signs Date Time Temp Pulse Resp B/P (MAP) Pulse Ox O2 Delivery O2 Flow Rate FiO2 12/14/20 07:47 20 Room Air 12/14/20 05:57 97.8 69 103/58 (73) 12/13/20 10:00 98 YOON PAN MD. Dec 14, 2020 08:52
[2020-12-14] MEDS: PRENATAL VITAMINS CHEWABLE TABLET PO SCH (09:24)
[2020-12-14] MEDS: DOCUSATE SODIUM 100MG CAPSULE PO SCH ×2 (09:24→21:42)
[2020-12-14] MEDS: busPIRone 10 MG TAB PO SCH (09:24)
[2020-12-14 17:49] VITALS: BP 110/56
[2020-12-15] MEDS ORDERED: PERCOCET PO (02:39)
[2020-12-15] MEDS ORDERED: IBUP80TA PO (02:39)
--- NOTE | 2020-12-15 02:48 | DS.PDOC ---
Discharge Summary General Date of Admission Dec 12, 2020 at 11:32 Date of Discharge 12/15/20 Attending Physician: YOON PAN MD. Discharge Summary PROCEDURES PERFORMED DURING STAY: 1. Spinal anesthesia 2. section 3. Tubal ligation. ADMITTING DIAGNOSES: 1. Placenta previa actively bleeding. DISCHARGE DIAGNOSES: 1. Placenta previa actively. COMPLICATIONS/CHIEF COMPLAINT: Bleeding. HISTORY OF PRESENT ILLNESS: 30-year-old 17 para 3 who presented at 35 weeks with known placenta previa actively bleeding and harshad patient underwent uncomplicated section. She express satisfy parity with undesired fertility and also had a bilateral tubal ligation at the time section. Her estimated blood loss section was 800ml. Patient did well postoperatively and by postoperative day #3 had met all discharge criteria is as discharged home in stable condition. DISCHARGE MEDICATIONS: Please see below. ALLERGIES: Please see below. PHYSICAL EXAMINATION ON DISCHARGE: VITAL SIGNS: Please see below. GENERAL: Well-appearing no acute distress ABDOMINAL EXAMINATION: Soft, appropriately tender Incision is dressed NEUROLOGICAL EXAMINATION: Grossly intact PSYCHIATRIC EXAMINATION: Appropriate LABORATORY DATA: Please see below. ACTIVITY: As tolerated. DIET: Regular DISCHARGE PLAN: Home DISCHARGE INSTRUCTIONS: 1. Remove dressing in 5-7 days from delivery 2. To remain on pelvic rest for 6 weeks 3. To report severe pain heavy vaginal bleeding fever or incisional issues. DISCHARGE CONDITION: Stable. Vital Signs/I&Os Vital Signs Date Time Temp Pulse Resp B/P (MAP) Pulse Ox O2 Delivery O2 Flow Rate FiO2 12/15/20 00:40 19 12/14/20 18:01 Room Air 12/14/20 17:49 97.5 80 110/56 (74) 12/13/20 10:00 98 Discharge Medications Scheduled Buspirone HCl (Buspirone HCl) 30 Mg Tablet, 30 MG PO BID, (Reported) Ibuprofen (Ibuprofen) 800 Mg Tablet, 800 MG PO Q8H No.137/Iron/Folic Acd ( Vitamin Tablet) 1 Each Tablet, 1 TAB PO DAILY, (Reported) Scheduled PRN Oxycodone/Acetaminophen (Oxycodone-Acetaminophen 5-325) 1 Each Tablet, 1-2 TAB PO Q6HP PRN for MILD/MODERATE PAIN (PS 1-7) Allergies Coded Allergies: Penicillins (Verified Allergy, Intermediate, HIVES, 12/12/20) Sulfa (Sulfonamide Antibiotics) (Verified Allergy, Intermediate, HIVES, 12/12/20) ketorolac (Verified Allergy, Intermediate, HIVES, 12/12/20) PT TAKES IBUPROFEN AT HOME nitrofurantoin (Verified Allergy, Intermediate, HIVES, 12/12/20) tramadol (Verified Allergy, Intermediate, RASH, 12/12/20) YOON PAN MD. Dec 15, 2020 02:48
[2020-12-15] MEDS: IBUPROFEN 800 MG TAB PO SCH (05:50)
[2020-12-15 06:00] VITALS: BP 95/52
[2020-12-15] MEDS: busPIRone 10 MG TAB PO SCH (09:09)
[2020-12-15] MEDS: DOCUSATE SODIUM 100MG CAPSULE PO SCH (09:09)
[2020-12-15] MEDS: PRENATAL VITAMINS CHEWABLE TABLET PO SCH (09:10)
== END 2020-12-15 11:50 | disposition home or self-care (01) | DRG 540 ==
LOC: M LDO 11:10 → M LDI 11:32 → M OBS 16:00
PROVIDERS: ADMIT Advanced Practice Midwife; ATTEND Advanced Practice Midwife
PROC: 0UB70ZZ Excision of Bilateral Fallopian Tubes, Open Approach (ICD-10-PCS; 2020-12-12)
PROC: 10D00Z1 Extraction of Products of Conception, Low, Open Approach (ICD-10-PCS; principal; 2020-12-12 12:14)
DX: O44.33 Partial placenta previa with hemorrhage, third trimester (principal); F17.200 Nicotine dependence, unspecified, uncomplicated; Z37.0 Single live birth; Z30.2 Encounter for sterilization; O99.334 Smoking (tobacco) complicating childbirth; Z88.0 Allergy status to penicillin; Z88.2 Allergy status to sulfonamides; Z88.8 Allergy status to other drugs, medicaments and biological substances; Z3A.35 35 weeks gestation of pregnancy

== ENCOUNTER 2021-05-19 19:38 | Emergency (ER) | payer OTHER ==
[~2021-05-19] VITALS: Ht 162.6 cm; Wt 79.5 kg
[~2021-05-19 19:38] MED LIST changes: +GABA-283; +GABA-283 PO; -GABA-845; -GABA-845 PO; +PERCOCET PO
[2021-05-19] MEDS ORDERED: ADDE10CA3 PO (19:53)
[2021-05-19] MEDS ORDERED: LATU40TA PO (19:53)
[2021-05-19] MEDS ORDERED: GABA-282 PO (19:53)
[2021-05-19] MEDS ORDERED: LITH300C PO (19:53)
[2021-05-19] MEDS ORDERED: FLUO20CA22 PO (19:53)
[2021-05-19] MEDS ORDERED: TOPI100T9 PO (19:53)
[2021-05-19] MEDS ORDERED: ASEN5TAB SL (19:53)
[2021-05-19] MEDS ORDERED: ANEXSIA, NORCO 7.5MG/325MG TABLET(HYDROCODONE/APAP) PO ONE (20:45)
--- NOTE | 2021-05-19 21:36 | REPVR ---
PROCEDURE INFORMATION: Exam: XR Right Hand Exam date and time: 05/19/2021 8:34 PM Age: 30 years old Clinical indication: Pain; Hand; Right; Patient HX: 5th mp area from punching windield; Additional info: Trauma TECHNIQUE: Imaging protocol: XR Right hand. Views: 3 or more views. COMPARISON: CR Hand, complete 07/26/2015 7:56 PM FINDINGS: Bones/joints: There is no fracture or dislocation. Joint spaces are intact. Soft tissues: Normal. IMPRESSION: No fracture Electronically signed by: Bhavik Mcnally On 05/19/2021 21:35:05 PM
--- NOTE | 2021-05-19 21:41 | REPVR ---
PROCEDURE INFORMATION: Exam: XR Right Foot Exam date and time: 05/19/2021 8:34 PM Age: 30 years old Clinical indication: Pain; Foot; Right; Additional info: Trauma TECHNIQUE: Imaging protocol: XR Right foot. Views: 1 or 2 views. COMPARISON: CR Foot, complete 09/23/2014 9:53 PM FINDINGS: Bones/joints: There is a bipartite medial sesamoid. There is no fracture of the phalanges, metatarsals or tarsal bones. There is no dislocation. Joint spaces are intact. Soft tissues: Normal. IMPRESSION: 1. Bipartite medial sesamoid. This is usually a normal variant. Sesamoid fractures may occur and this should be correlate for any pain at this site. 2. No fracture of phalanges, metatarsals or tarsal bones. Electronically signed by: Bhavik Mcnally On 05/19/2021 21:40:42 PM
--- NOTE | 2021-05-19 21:43 | REPVR ---
PROCEDURE INFORMATION: Exam: XR Right Tibia and Fibula Exam date and time: 05/19/2021 8:34 PM Age: 30 years old Clinical indication: Pain; Lower leg; Right; Additional info: Trauma TECHNIQUE: Imaging protocol: XR Right tibia and fibula. Views: 2 views. COMPARISON: CR Ankle, complete 11/18/2014 8:36 PM FINDINGS: Bones/joints: There is no fracture of the tibia or fibula. Soft tissues: Normal. IMPRESSION: No fracture Electronically signed by: Bhavik Mcnally On 05/19/2021 21:42:36 PM
--- NOTE | 2021-05-19 21:44 | REPVR ---
PROCEDURE INFORMATION: Exam: XR Right Knee Exam date and time: 05/19/2021 8:34 PM Age: 30 years old Clinical indication: Pain; Knee; Right; Additional info: Trauma TECHNIQUE: Imaging protocol: XR Right knee. Views: 1 or 2 views. COMPARISON: CR Knee, complete 09/23/2014 9:53 PM FINDINGS: Bones/joints: There is no fracture or dislocation. The joint spaces are intact. There is no focal osseous lesion. Soft tissues: Normal. IMPRESSION: No fracture Electronically signed by: Bhavik Mcnally On 05/19/2021 21:43:46 PM
[2021-05-19 21:46] VITALS: BP 112/68
[2021-05-19] MEDS ORDERED: HYDR-3713 PO (21:54)
== END 2021-05-19 22:07 | disposition home or self-care (01) ==
LOC: M ED 19:38
DX: S80.11XA Contusion of right lower leg, initial encounter (principal); V03.19XA Pedestrian with other conveyance injured in collision with car, pick-up truck or van in traffic accident, initial encounter; Y92.410 Unspecified street and highway as the place of occurrence of the external cause; Y93.9 Activity, unspecified; Y99.9 Unspecified external cause status; J45.909 Unspecified asthma, uncomplicated; F32.9 Major depressive disorder, single episode, unspecified; F41.9 Anxiety disorder, unspecified; F17.200 Nicotine dependence, unspecified, uncomplicated; Z79.899 Other long term (current) drug therapy; Z88.0 Allergy status to penicillin; Z88.2 Allergy status to sulfonamides; Z88.8 Allergy status to other drugs, medicaments and biological substances; Z88.5 Allergy status to narcotic agent